=== PATIENT | male | born 1950 | race Caucasian/White ===

== ENCOUNTER 2016-10-25 08:06 | Emergency (ER) | payer MEDICARE ==
[~2016-10-25] VITALS: Ht 172.7 cm; Wt 81.8 kg
[~2016-10-25 08:06] MED LIST: /ESCI10TA; /QUET25TA; /TAMS4CA; AMBI10TA; DIOV80TA; SIMV20TA2; XANA0.25; ZOLO25TA
[2016-10-25] MEDS ORDERED: LISI40TAB PO (08:18)
[2016-10-25] MEDS ORDERED: METF500T13 PO (08:18)
[2016-10-25] MEDS ORDERED: HYDR25TAB PO (08:18)
[2016-10-25] MEDS ORDERED: ASPI81TA85 PO (08:18)
[2016-10-25] MEDS ORDERED: DOXA1TAB72 PO (08:18)
[2016-10-25] MEDS ORDERED: ROSU5TAB PO (08:18)
[2016-10-25] MEDS ORDERED: ASPIRIN 81 MG CHEW TABLET PO ONE (08:30)
[2016-10-25] MEDS ORDERED: NS 1,000 ML IV ONE (08:30)
[2016-10-25] MEDS ORDERED: NITROGLYCERIN 0.4 MG SUBL TABLET SL PRN (08:30)
[2016-10-25] MEDS ORDERED: ALBU17IN2 INH (08:42)
[2016-10-25] MEDS ORDERED: SPIR1CAP INH (08:42)
[2016-10-25] MEDS ORDERED: MORPHINE 2 MG/ML 1ML SYRINGE As Ordered ONE (08:48)
[2016-10-25 08:53] LABS: BASO % 0.7 % (0.0-1.0); EOS # 0.1 K/mm3 (0.0-0.50); EOS % 2.8 % (0.0-3.0); LARGE UNSTAINED CELL # 0.1 K/mm3 (0.0-0.4); LARGE UNSTAINED CELL % 2.6 % (0.0-4.0); LYMPH # 1.1 K/mm3 (1.5-4.5); LYMPH % 20.3 % (24.0-44.0); MEAN CORPUSCULAR HEMOGLOBIN 32.1 pg (27.0-33.0); MEAN CORPUSCULAR HGB CONC 34.6 g/dl (32.0-36.5); MEAN CORPUSCULAR VOLUME 92.6 fl (80.0-96.0); MONO # 0.4 K/mm3 (0.0-0.8); MONO % 7.6 % (0.0-5.0); NEUTROPHILS # 3.2 K/mm3 (1.8-7.7); NEUTROPHILS % 66.1 % (36.0-66.0); PLATELET COUNT, AUTOMATED 154 k/mm3 (150-450); RED CELL DISTRIBUTION WIDTH 12.9 % (11.5-14.5); WHITE BLOOD COUNT 4.9 K/mm3 (4.0-10.0)
[2016-10-25 08:59] LABS: ALBUMIN 3.7 GM/DL (3.2-5.2); ALBUMIN/GLOBULIN RATIO 0.97 (1.00-1.93); ALKALINE PHOSPHATASE 75 U/L (45-117); ALT/SGPT 57 U/L (12-78); ANION GAP 5 MEQ/L (8-16); AST/SGOT 26 U/L (15-37); BILIRUBIN,DIRECT < 0.1 MG/DL (0.0-0.2); BILIRUBIN,TOTAL 0.5 MG/DL (0.2-1.0); BLOOD UREA NITROGEN 17 MG/DL (7-18); CALCIUM LEVEL 9.1 MG/DL (8.8-10.2); CARBON DIOXIDE LEVEL 29 MEQ/L (21-32); CHLORIDE LEVEL 106 MEQ/L (98-107); CREATININE FOR GFR 1.38 MG/DL (0.70-1.30); FREE T4 1.05 NG/DL (0.76-1.46); GLOMERULAR FILTRATION RATE 54.9 (>49); GLUCOSE, FASTING 141 MG/DL (80-110); SODIUM LEVEL 140 MEQ/L (136-145); TOTAL PROTEIN 7.5 GM/DL (6.4-8.2)
[2016-10-25] MEDS ORDERED: MORPHINE 4 MG/ML 1ML SYRINGE IV ONE (09:00)
[2016-10-25] MEDS ORDERED: MORPHINE 2 MG/ML 1ML SYRINGE IV PRN (09:00)
[2016-10-25 09:01] LABS: INR 0.96
--- NOTE | 2016-10-25 09:10 | REP ---
PORTABLE CHEST: AP portable view of the chest is performed without prior studies for comparison. There is no acute infiltrate. There is mild linear fibroatelectatic change in each lung base. The heart is not enlarged. The mediastinal silhouette is unremarkable. IMPRESSION: No acute infiltrate. Signed by German Hoffmann MD 10/25/2016 05:12 P
[2016-10-25] MEDS ORDERED: ISOVUE-370 76% 100ML VIAL (Q9967) As Ordered ONE (09:48)
--- NOTE | 2016-10-25 11:22 | REP ---
CT ANGIOGRAM OF THE CHEST: TECHNIQUE: Axial contrast enhanced images from the thoracic inlet to the upper abdomen using 100 mL Isovue 370 intravenous contrast material with multiplanar reformations. There are scattered interstitial fibrotic changes diffusely bilaterally. No infiltrates are seen. The heart is normal in size. There is no CT evidence of pulmonary embolism. Normal mediastinal and hilar lymph nodes are present. There is no thoracic aortic aneurysm or dissection. There is no pleural or pericardial effusion. There are degenerative changes of the spine. IMPRESSION: No CT evidence of pulmonary embolism or other acute abnormality. Signed by German Hoffmann MD 10/25/2016 05:13 P
--- NOTE | 2016-10-25 11:36 | REP ---
CT ABDOMEN AND PELVIS WITH IV CONTRAST: TECHNIQUE: Axial contrast enhanced images from the lung bases to the pubic symphysis using 100 mL Isovue 370 intravenous contrast material with multiplanar reformations. Liver appears to demonstrate diffuse fatty infiltration. Gallbladder is grossly unremarkable. Spleen and adrenals are unremarkable. Pancreas is unremarkable with no surrounding inflammation. There are multiple innumerable right renal cysts with a cluster of calculi in the lower pole collecting system. There are a couple of left renal cysts. There is no hydroureteronephrosis bilaterally. Possible 4 mm calculus is seen in the distal right ureter at the ureterovesical junction. Urinary bladder is mildly distended. A portion of the left anterior inferior bladder extends into a small left inguinal hernia. There is also a small right inguinal hernia containing fat. There are atherosclerotic calcifications of the abdominal aorta without aneurysm. There is no adenopathy. There is no free air or free fluid. There is no evidence of appendicitis. There is no bowel wall thickening. There is sigmoid diverticulosis without acute diverticulitis. IMPRESSION: Bilateral inguinal hernias. A portion of the left side of the bladder extends into the left inguinal hernia. There is sigmoid diverticulosis without acute diverticulitis. No evidence of appendicitis. No free air or free fluid. Bilateral renal cysts much more so on the right than on the left. No hydroureteronephrosis. There appears to be a 4 mm calculus at the right ureterovesical junction but again this does not cause hydronephrosis. Signed by German Hoffmann MD 10/25/2016 05:13 P
[2016-10-25 12:58] VITALS: BP 148/80
--- NOTE | 2016-10-26 05:55 | ECGEPIP ---
Stationary ECG Study [facility] - ED Test Date: 2016-10-25 Pat Name: DAGMAR LANDRY Department: Room: - Gender: M Clinical Data Coordinator: gopal : 1950 Requested By: Everardo Pritchett Order Number: [id number] Reading MD: Man Blood Measurements Intervals [place] Rate: 89 P: 32 MO: 142 QRS: 83 QRSD: 162 T: 1 QT: 396 QTc: 483 Interpretive Statements SINUS RHYTHM INDETERMINATE AXIS RIGHT BUNDLE BRANCH BLOCK NO PRIORS Electronically Signed On 10-26-2016 5:54:47 EDT by Man Blood
--- NOTE | 2016-10-26 05:56 | ECGEPIP ---
Stationary ECG Study [facility] - ED Test Date: 2016-10-25 Pat Name: DAGMAR LANDRY Department: Room: - Gender: M Cobol Engineer: gopal : 1950 Requested By: Everardo Pritchett Order Number: [id number] Reading MD: Man Blood Measurements Intervals [place] Rate: 79 P: 26 NV: 146 QRS: 45 QRSD: 154 T: 5 QT: 398 QTc: 459 Interpretive Statements SINUS RHYTHM RIGHT BUNDLE BRANCH BLOCK SIMILAR TO PRIOR ON SAME DATE Electronically Signed On 10-26-2016 5:56:19 EDT by Man Blood
--- NOTE | 2016-10-26 13:32 | ED PDOC ---
Post-Departure Follow-Up dr bernardo faxed formal report of ct abd/p for fu Everardo Escobar MD Oct 26, 2016 13:32
== END 2016-10-25 13:12 | disposition home or self-care (01) ==
LOC: M ED 11:43
DX: N20.0 Calculus of kidney (principal); K40.21 Bilateral inguinal hernia, without obstruction or gangrene, recurrent; K57.30 Diverticulosis of large intestine without perforation or abscess without bleeding; N28.1 Cyst of kidney, acquired; R07.9 Chest pain, unspecified; I10 Essential (primary) hypertension; J44.9 Chronic obstructive pulmonary disease, unspecified; F17.200 Nicotine dependence, unspecified, uncomplicated; Z85.528 Personal history of other malignant neoplasm of kidney; Z90.5 Acquired absence of kidney; Z79.82 Long term (current) use of aspirin; Z79.899 Other long term (current) drug therapy
CPT/HCPCS: 36415; 71010; 71275; 74177; 80048; 80076; 82550; 82553; 83690; 84439; 84443; 84484; 85025; 85379; 85610; 85730; 93005; 93041; 94760; 96361; 96374; 99285; Q9967

== ENCOUNTER → 2018-09-11 | Outpatient (CLI) | payer MEDICARE ==
[~2018-09-11] MED LIST changes: -/ESCI10TA; -/QUET25TA; -/TAMS4CA; +ALBU17IN2 INH; +ASPI81TA85 PO; +DOXA1TAB67 PO; +FLOM0.4C39; +HYDR25TAB PO; +LEXA1TAB; +LISI40TA PO; +METF500T13 PO; +ROSU5TAB4 PO; +SERO1TAB3; +SPIR1CAP INH
[2018-09-11 12:54] LABS: CREATININE FOR GFR 1.3 MG/DL (0.70-1.30); GLOMERULAR FILTRATION RATE 58.4 (>49); PROSTATIC SPECIFIC AG MONITOR 6.3 NG/ML (< 4.00)
== END ==
LOC: M WUC 10:32
PROVIDERS: ATTEND Urology
DX: Z01.812 Encounter for preprocedural laboratory examination (principal); Z85.528 Personal history of other malignant neoplasm of kidney; R31.21 Asymptomatic microscopic hematuria; R97.20 Elevated prostate specific antigen [PSA]

== ENCOUNTER → 2019-02-12 | Outpatient (CLI) | payer MEDICARE ==
[~2019-02-12] MED LIST changes: -ROSU5TAB4 PO; +ROSU5TAB5 PO
[2019-02-12 20:27] LABS: CREATININE FOR GFR 1.32 MG/DL (0.70-1.30); GLOMERULAR FILTRATION RATE 57.4 (>49); PROSTATIC SPECIFIC AG MONITOR 6.09 NG/ML (< 4.00)
== END ==
LOC: M WUC 17:46
PROVIDERS: ATTEND Nurse Practitioner Adult Health
DX: N42.9 Disorder of prostate, unspecified (principal); R31.21 Asymptomatic microscopic hematuria

== ENCOUNTER → 2019-10-15 | Outpatient (CLI) | payer MEDICARE ==
[2019-10-15 16:21] LABS: BLOOD UREA NITROGEN 17 MG/DL (7-18); CALCIUM LEVEL 9.6 MG/DL (8.8-10.2); CARBON DIOXIDE LEVEL 29 MEQ/L (21-32); CHLORIDE LEVEL 104 MEQ/L (98-107); CREATININE FOR GFR 1.19 MG/DL (0.70-1.30); GLOMERULAR FILTRATION RATE > 60.0 (>49); GLUCOSE, FASTING 111 MG/DL (70-100); POTASSIUM SERUM 4.2 MEQ/L (3.5-5.1); SODIUM LEVEL 137 MEQ/L (136-145)
[2019-10-20 04:07] LABS: PSA % FREE 24.4 % (.); PSA FREE 1.27 ng/mL; PSA TOTAL 5.2 ng/mL (0.0-4.0)
== END ==
LOC: M WUC 12:33
PROVIDERS: ATTEND Urology
DX: Z01.812 Encounter for preprocedural laboratory examination (principal); N28.1 Cyst of kidney, acquired; R97.20 Elevated prostate specific antigen [PSA]

== ENCOUNTER → 2020-10-13 | Outpatient (CLI) | payer MEDICARE ==
[~2020-10-13] MED LIST changes: -ASPI81TA85 PO; +ASPI81TA86 PO; +HYDR-3490 PO; -HYDR25TAB PO; -LISI40TA PO; +LISI40TA4 PO
[2020-10-13 17:06] LABS: CALCIUM LEVEL 9.5 MG/DL (8.8-10.2); CREATININE FOR GFR 1.51 MG/DL (0.70-1.30); GLOMERULAR FILTRATION RATE 48.9 (>42); POTASSIUM SERUM 3.9 MEQ/L (3.5-5.1); PROSTATIC SPECIFIC AG MONITOR 6.96 NG/ML (< 4.00)
== END ==
LOC: M WUC 11:06
PROVIDERS: ATTEND Nurse Practitioner Adult Health
DX: R97.20 Elevated prostate specific antigen [PSA] (principal); Z85.528 Personal history of other malignant neoplasm of kidney

== ENCOUNTER 2021-02-10 16:04 | Emergency (ER) | payer MEDICARE ==
[~2021-02-10] VITALS: Ht 175.3 cm; Wt 81.8 kg
[2021-02-10] MEDS ORDERED: CHLO125TA PO (17:08)
[2021-02-10] MEDS ORDERED: GLIM2TAB4 PO (17:08)
[2021-02-10] MEDS ORDERED: ROSU10TA6 PO (17:08)
[2021-02-10 17:15] LABS: HEMATOCRIT 47.6 % (42.0-52.0); HEMOGLOBIN 16.2 g/dl (13.5-17.5); MEAN CORPUSCULAR HEMOGLOBIN 31.3 pg (27.0-33.0); MEAN CORPUSCULAR VOLUME 92.1 fl (80.0-96.0); PLATELET COUNT, AUTOMATED 216 10^3/uL (150-450); RED BLOOD COUNT 5.17 10^6/uL (4.30-6.10); WHITE BLOOD COUNT 11.4 10^3/uL (4.0-10.0)
[2021-02-10 17:53] LABS: ACETAMINOPHEN LEVEL < 2.0 UG/ML (10.0-30.0); ALBUMIN 3.7 GM/DL (3.2-5.2); ALT/SGPT 50 U/L (12-78); BILIRUBIN,DIRECT 0.1 MG/DL (0.0-0.2); BILIRUBIN,TOTAL 0.5 MG/DL (0.2-1.0); BLOOD UREA NITROGEN 29 MG/DL (7-18); CALCIUM LEVEL 9.5 MG/DL (8.8-10.2); CARBON DIOXIDE LEVEL 26 MEQ/L (21-32); CHLORIDE LEVEL 106 MEQ/L (98-107); CREATININE FOR GFR 1.56 MG/DL (0.70-1.30); ETHYL ALCOHOL (ETHANOL) < 0.003 % (0.000-0.010); GLOMERULAR FILTRATION RATE 47.1 (>42); GLUCOSE, FASTING 87 MG/DL (70-100); POTASSIUM SERUM 4.1 MEQ/L (3.5-5.1); SALICYLATE LEVEL 2.6 MG/DL (5.0-30.0); SODIUM LEVEL 139 MEQ/L (136-145); TOTAL PROTEIN 7.1 GM/DL (6.4-8.2)
[2021-02-10 18:55] LABS: AMPHETAMINES LEVEL URINE NEGATIVE (NEGATIVE); BARBITURATES URINE NEGATIVE (NEGATIVE); BENZODIAZEPINES URINE POSITIVE (NEGATIVE); CANNABINOIDS URINE NEGATIVE (NEGATIVE); COCAINE METABOLITE URINE NEGATIVE (NEGATIVE); METHADONE URINE NEGATIVE (NEGATIVE); OPIATES URINE NEGATIVE (NEGATIVE); PHENCYCLIDINE URINE NEGATIVE (NEGATIVE)
[2021-02-10] MEDS ORDERED: clonazePAM 0.5 MG TAB PO ONE (20:30)
[2021-02-10] MEDS ORDERED: CLON0.5T17 PO (21:17)
[2021-02-10 22:00] VITALS: BP 135/82
== END 2021-02-10 22:02 | disposition home or self-care (01) ==
LOC: M ED 16:04
DX: F32.9 Major depressive disorder, single episode, unspecified (principal); E11.9 Type 2 diabetes mellitus without complications; I10 Essential (primary) hypertension; F17.200 Nicotine dependence, unspecified, uncomplicated; Z79.82 Long term (current) use of aspirin; Z79.899 Other long term (current) drug therapy

== ENCOUNTER 2021-02-16 10:13 | Inpatient (IN) | payer MEDICARE ==
[~2021-02-16] VITALS: Ht 175.3 cm; Wt 82.1 kg
[~2021-02-16 10:13] MED LIST changes: +CHLO125TA PO; +CLON0.5T17 PO; +GLIM2TAB4 PO; +ROSU10TA6 PO
--- OUTSIDE RECORDS SUMMARY | 2021-02-16 10:26 | CCD | Continuity of Care Document ---
Author Author Junito BRENNAN Organization Unknown Address [address] [place] [address] [place] [address] Phone [phone] Care Team Providers Care Hand Mexican Food Maker Name Role Phone [facility] AUTM [phone] Problems Active Problems Provider Date Essential hypertension Onset: Hyperlipidemia Onset: Type 2 diabetes mellitus Onset: 00 Social History Type Date Description Comments Sex Unknown ETOH Use Denies alcohol use Tobacco Use Start: Unknown Patient is a current smoker, smo kes every day Smoking Status Reviewed: 01/05/21 Patient is a current smoker, smokes every day Allergies, Adverse Reactions, Alerts Description No Known Drug Allergies Medications Active Medications SIG Qnty Indications Ordering Provide r Date Clotrimazole 1% Cream apply to affected area on penis twice daily as directed for 14 days 30gm R21 Edgard Rendon JR., M.D. 01/05/2021 Lisinopril 40mg Tablets od 30tabs Unknown Chlorthalidone 25mg Tablets Unknown Rosuvastatin Calcium 10mg Tablets daily Unknown Glimepiride Unknown Aleve 220mg Tablets 2@6a Unknown Immunizations Description No Information Available Vital Signs Date Vital Result Comment 01/05/2021 11:18am BP Systolic 160 mmHg BP Diastolic 91 mmHg Heart Rate 89 /min Respiratory Rate 16 /min O2 % BldC Oximetry 97 % Body Temperature 98.4 F Weight 185.00 lb Height 69 inches 5'9" BMI (Body Mass Index) 27.3 kg/m2 Pain Level 2 10/27/2019 11:04am BP Systolic 146 mmHg BP Diastolic 82 mmHg Heart Rate 87 /min O2 % BldC Oximetry 94 % Body Temperature 97.9 F Weight 179.00 lb Height 69 inches 5'9" BMI (Body Mass Index) 26.4 kg/m2 Pain Level 0 Results Description No Information Available Procedures Date Code Description Status 01/05/2021 15863 Office/Outpatient Established Lo w MDM 20-29 Min Completed Medical Devices Description No Information Available Encounters Type Date Location Provider Dx Diagnosis Office Visit 01/05/2021 9:00a Main Office Skip Lockhart R2 1 Rash and other nonspecific skin eruption R30.0 Dysuria Assessments Date Code Description Provider 01/05/2021 R21 Rash and other nonspecific skin eruption Julio Brennan, PMaryannAMaryann 01/05/2021 R30.0 Dysuria Julio ivory, P.AMaryann Plan of Treatment No Information Available Functional Status Description No Information Available Mental Status Description No Information Available Referrals Description No Information Available
--- OUTSIDE RECORDS SUMMARY | 2021-02-16 10:26 | CCD | Continuity of Care Document ---
Author Author Junito BRENNAN Organization Unknown Address [address] [place] [address] [place] [address] Phone [phone] Care Team Providers Care Materials Management Supervisor Name Role Phone [facility] AUTM [phone] Problems Active Problems Provider Date Essential hypertension [...] Available Procedures Date Code Description Status 01/05/2021 40060 Office/Outpatient Established Lo w MDM 20-29 Min [...]
--- OUTSIDE RECORDS SUMMARY | 2021-02-16 10:26 | CCD | Continuity of Care Document ---
Author Author Junito DAUGHERTY CO Organization Unknown Address [address] [place] [address] [place] [address] Phone [phone] Care Team Providers Care Finishing Machine Operator Automatic Name Role Phone [facility] AUTM [phone] Problems Active Problems Provider Date Essential hypertension Onset: Hyperlipidemia Onset: Type 2 diabetes mellitus Onset: Social History Type Date Description Comments Sex Unknown ETOH Use Denies alcohol use Tobacco Use Start: Unknown Patient is a current smoker, smo kes every day Tobacco Use Start: Unknown The Patient Has Never Vaped Smoking Status Reviewed: 01/10/21 The Patient Has Never Vaped Allergies, Adverse Reactions, Alerts Description No Known Drug Allergies Medications Active Medications SIG Qnty Indications Ordering Provide r Date Mupirocin 2% Ointment aaa twice a day to the groin for 10 days 1units L30.9 Charissa Wadsworth JR. 01/10/2021 Hibiclens 4% Liquid wash into affected area twice a day x 10days 1units L30.9 Edgard Rendon JR., M.D. 01/10/2021 Amoxicillin/Clavulanate Potassium 875-125mg Tablets take one tablet by mouth twice a day x 10 days 20tabs L 30.9 Edgard Rendon JR., M.D. 01/10/2021 Clotrimazole 1% Cream apply to affected area on penis twice daily as directed for 14 days 30gm R21 Edgard Rendon JR., M.D. 01/05/2021 Lisinopril 40mg Tablets od 30tabs Unknown Chlorthalidone 25mg Tablets Unknown Rosuvastatin Calcium 10mg Tablets daily Unknown Glimepiride Unknown Aleve 220mg Tablets 2@6a Unknown Immunizations Description No Information Available Vital Signs Date Vital Result Comment 01/10/2021 4:41pm BP Systolic 160 mmHg BP Diastolic 96 mmHg Heart Rate 91 /min Respiratory Rate 16 /min O2 % BldC Oximetry 95 % Body Temperature 97.9 F Weight 185.00 lb Height 69 inches 5'9" BMI (Body Mass Index) 27.3 kg/m2 Pain Level 5 01/05/2021 11:18am BP Systolic 160 mmHg BP Diastolic 91 mmHg Heart Rate 89 /min Respiratory Rate 16 /min O2 % BldC Oximetry 97 % Body Temperature 98.4 F Weight 185.00 lb Height 69 inches 5'9" BMI (Body Mass Index) 27.3 kg/m2 Pain Level 2 Results Description No Information Available Procedures Date Code Description Status 01/10/2021 24147 Office/Outpatient Established Lo w MDM 20-29 Min Completed 01/05/2021 49473 Office/Outpatient Established Lo w MDM 20-29 Min Completed Medical Devices Description No Information Available Encounters Type Date Location Provider Dx Diagnosis Office Visit 01/10/2021 2:15p Main Office LADY Cotton L30 .9 Dermatitis, unspecified Office Visit 01/05/2021 9:00a Main Office Julio Bowden, P.A. R2 1 Rash and other nonspecific skin eruption R30.0 Dysuria Assessments Date Code Description Provider 01/10/2021 L30.9 Dermatitis, unspecified LADY Cotton 01/05/2021 R21 Rash and other nonspecific skin eruption Julio Bowden, P.A. 01/05/2021 R30.0 Dysuria Julio ivory, P.A. Plan of Treatment 01/10/2021 - LADY Cotton* L30.9 Dermatitis, unspecified* New Medication:* Mupirocin 2 % - aaa twice a day to the groin for 10 days * Hibiclens 4 % - wash into affected area twice a day x 10days * Amoxicillin/Clavulanate Potassium 875-125 mg - take one tablet by mouth twice a day x 10 days Functional Status Description No Information Available Mental Status Description No Information Available Referrals Description No Information Available
--- OUTSIDE RECORDS SUMMARY | 2021-02-16 10:26 | CCD ---
Author Author [facility] Organization [facility] Address Unknown Phone Unavailable Care Team Providers Care Chartered Wealth Manager Name Role Phone WILLOW, Natalie WHITE PA Unavailable Unavailable LETTIERE, A CHRISTOPHER PA Unavailable Unavailable LETTIERE, A CHRISTOPHER PA Unavailable Unavailable LETTIERE, A CHRISTOPHER PA Unavailable Unavailable LETTIERE, A CHRISTOPHER PA Unavailable Unavailable LETTIERE, A CHRISTOPHER PA Unavailable Unavailable LETTIERE, A CHRISTOPHER PA Unavailable Unavailable LETTIERE, A CHRISTOPHER PA Unavailable Unavailable LETTIERE, A CHRISTOPHER PA Unavailable Unavailable LETTIERE, A CHRISTOPHER PA Unavailable Unavailable LETTIERE, A CHRISTOPHER PA Unavailable Unavailable LETTIERE, A CHRISTOPHER PA Unavailable Unavailable LETTIERE, A CHRISTOPHER PA Unavailable Unavailable LETTIERE, A CHRISTOPHER PA Unavailable Unavailable LETTIERE, A CHRISTOPHER PA Unavailable Unavailable LETTIERE, A CHRISTOPHER PA Unavailable Unavailable LETTIERE, A CHRISTOPHER PA Unavailable Unavailable LETTIERE, A CHRISTOPHER PA Unavailable Unavailable LETTIERE, A CHRISTOPHER PA Unavailable Unavailable LETTIERE, A CHRISTOPHER PA Unavailable Unavailable LETTIERE, A CHRISTOPHER PA Unavailable Unavailable LETTIERE, A CHRISTOPHER PA Unavailable Unavailable LETTIERE, A CHRISTOPHER PA Unavailable Unavailable LETTIERE, A CHRISTOPHER PA Unavailable Unavailable LETTIERE, A CHRISTOPHER PA Unavailable Unavailable LETTIERE, A CHRISTOPHER PA Unavailable Unavailable LETTIERE, A CHRISTOPHER PA Unavailable Unavailable LETTIERE, A CHRISTOPHER PA Unavailable Unavailable LETTIERE, A CHRISTOPHER PA Unavailable Unavailable LETTIERE, A CHRISTOPHER PA Unavailable Unavailable LETTIERE, A CHRISTOPHER PA Unavailable Unavailable PICKERAL JR, J RAN PA-C Unavailable Unavailable PICKERAL JR, J RAN PA-C Unavailable Unavailable PICKERAL JR, J RAN PA-C Unavailable Unavailable PICKERAL JR, J RAN PA-C Unavailable Unavailable PICKERAL JR, J RAN PA-C Unavailable Unavailable PICKERAL JR, J RAN PA-C Unavailable Unavailable PICKERAL JR, J RAN PA-C Unavailable Unavailable PICKERAL JR, J RAN PA-C Unavailable Unavailable PICKERAL JR, J RAN PA-C Unavailable Unavailable PICKERAL JR, J RAN PA-C Unavailable Unavailable PICKERAL JR, J RAN PA-C Unavailable Unavailable PICKERAL JR, J RAN PA-C Unavailable Unavailable PICKERAL JR, J RAN PA-C Unavailable Unavailable PICKERAL JR, J RAN PA-C Unavailable Unavailable PICKERAL JR, J RAN PA-C Unavailable Unavailable PICKERAL JR, J RAN PA-C Unavailable Unavailable PICKERAL JR, J RAN PA-C Unavailable Unavailable PICKERAL JR, J RAN PA-C Unavailable Unavailable PICKERAL JR, J RAN PA-C Unavailable Unavailable PICKERAL JR, J RAN PA-C Unavailable Unavailable PICKERAL JR, J RAN PA-C Unavailable Unavailable PICKERAL JR, J RAN PA-C Unavailable Unavailable PICKERAL JR, J RAN PA-C Unavailable Unavailable PICKERAL JR, J RAN PA-C Unavailable Unavailable PICKERAL JR, J RAN PA-C Unavailable Unavailable PICKERAL JR, J RAN PA-C Unavailable Unavailable PICKERAL JR, J RAN PA-C Unavailable Unavailable ANU, GRETCHEN PA Unavailable Unavailable ANU, GRETCHEN PA Unavailable Unavailable ANU, GRETCHEN PA Unavailable Unavailable ANU, GRETCHEN PA Unavailable Unavailable ANU, GRETCHEN PA Unavailable Unavailable ANU, GRETCHEN PA Unavailable Unavailable ANU, GRETCHEN PA Unavailable Unavailable ANU, GRETCHEN PA Unavailable Unavailable ANU, GRETCHEN PA Unavailable Unavailable ANU, GRETCHEN PA Unavailable Unavailable ANU, GRETCHEN PA Unavailable Unavailable ANU, GRETCHEN PA Unavailable Unavailable ANU, GRETCHEN PA Unavailable Unavailable ANU, GRETCHEN PA Unavailable Unavailable ANU, GRETCHEN PA Unavailable Unavailable ANU, GRETCHEN PA Unavailable Unavailable ANU, GRETCHEN PA Unavailable Unavailable ANU, GRETCHEN PA Unavailable Unavailable ANU, GRETCHEN PA Unavailable Unavailable ANU, GRETCHEN PA Unavailable Unavailable ANU, GRETCHEN PA Unavailable Unavailable ANU, GRETCHEN PA Unavailable Unavailable ANU, GRETCHEN PA Unavailable Unavailable ANU, GRETCHEN PA Unavailable Unavailable ANU, GRETCHEN PA Unavailable Unavailable ANU, GRETCHEN PA Unavailable Unavailable ANU, GRETCHEN PA Unavailable Unavailable ANU, GRETCHEN PA Unavailable Unavailable ANU, GRETCHEN PA Unavailable Unavailable ANU, GRETCHEN PA Unavailable Unavailable ANU, GRETCHEN PA Unavailable Unavailable ANU, GRETCHEN PA Unavailable Unavailable ANU, GRETCHEN PA Unavailable Unavailable ANU, GRETCHEN PA Unavailable Unavailable ANU, GRETCHEN PA Unavailable Unavailable ANU, GRETCHEN PA Unavailable Unavailable TELMA, Natalie MERCEDES MD Unavailable Unavailable TELMA, Natalie MERCEDES MD Unavailable Unavailable TELMA, Natalie MERCEDES MD Unavailable Unavailable TELMA, Natalie MERCEDES MD Unavailable Unavailable TELMA, Natalie MERCEDES MD Unavailable Unavailable TELMA, Natalie MERCEDES MD Unavailable Unavailable TELMA, Natalie MERCEDES MD Unavailable Unavailable TELMA, Natalie MERCEDES MD Unavailable Unavailable TELMA, Natalie MERCEDES MD Unavailable Unavailable TELMA, Natalie MERCEDES MD Unavailable Unavailable TELMA, Natalie MERCEDES MD Unavailable Unavailable TELMA, Natalie MERCEDES MD Unavailable Unavailable TELMA, Natalie MERCEDES MD Unavailable Unavailable TELMA, Natalie MERCEDES MD Unavailable Unavailable TELMA, Natalie MERCEDES MD Unavailable Unavailable TELMA, Natalie MERCEDES MD Unavailable Unavailable TELMA, Natalie MERCEDES MD Unavailable Unavailable TELMA, Natalie MERCEDES MD Unavailable Unavailable TELMA, Natalie MERCEDES MD Unavailable Unavailable TELMA, Natalie MERCEDES MD Unavailable Unavailable TELMA, Natalie MERCEDES MD Unavailable Unavailable TELMA, Natalie MERCEDES MD Unavailable Unavailable TELMA, Natalie MERCEDES MD Unavailable Unavailable TELMA, Natalie MERCEDES MD Unavailable Unavailable TELMA, Natalie MERCEDES MD Unavailable Unavailable TELMA, Natalie MERCEDES MD Unavailable Unavailable TELMA, Natalie MERCEDES MD Unavailable Unavailable TELMA, Natalie MERCEDES MD Unavailable Unavailable TELMA, Natalie MERCEDES MD Unavailable Unavailable TELMA, Natalie MERCEDES MD Unavailable Unavailable TELMA, Natalie MERCEDES MD Unavailable Unavailable TELMA, Natalie MERCEDES MD Unavailable Unavailable TELMA, Natalie MERCEDES MD Unavailable Unavailable TELMA, Natalie MERCEDES MD Unavailable Unavailable TELMA, Natalie MERCEDES MD Unavailable Unavailable TELMA, Natalie MERCEDES MD Unavailable Unavailable TELMA, Natalei MERCEDES MD Unavailable Unavailable TELMA, Natalie MERCEDES MD Unavailable Unavailable TELMA, Natalie MERCEDES MD Unavailable Unavailable TELMA, A MAGO MD Unavailable Unavailable TELMA, A MAGO MD Unavailable Unavailable TELMA, A MAGO MD Unavailable Unavailable TELMA, A MAGO MD Unavailable Unavailable TELMA, A MAGO MD Unavailable Unavailable TELMA, A MAGO MD Unavailable Unavailable TELMA, A MAGO MD Unavailable Unavailable TELMA, A MAGO MD Unavailable Unavailable TELMA, A MAGO MD Unavailable Unavailable TELMA, A MAGO MD Unavailable Unavailable TELMA, A MAGO MD Unavailable Unavailable TELMA, A MAGO MD Unavailable Unavailable TELMA, A MAGO MD Unavailable Unavailable TELMA, A MAGO MD Unavailable Unavailable TELMA, A MAGO MD Unavailable Unavailable TELMA, A MAGO MD Unavailable Unavailable TELMA, A MAGO MD Unavailable Unavailable TELMA, A MAGO MD Unavailable Unavailable TELMA, A MAGO MD Unavailable Unavailable TELMA, A MAGO MD Unavailable Unavailable TELMA, A MAGO MD Unavailable Unavailable TELMA, A MAGO MD Unavailable Unavailable TELMA, A MAGO MD Unavailable Unavailable TELMA, A MAGO MD Unavailable Unavailable TELMA, A MAGO MD Unavailable Unavailable TELMA, A MAGO MD Unavailable Unavailable TELMA, A MAGO MD Unavailable Unavailable TELMA, A MAGO MD Unavailable Unavailable TELMA, A MAGO MD Unavailable Unavailable TELMA, A MAGO MD Unavailable Unavailable TELMA, A MAGO MD Unavailable Unavailable TELMA, A MAGO MD Unavailable Unavailable TELMA, A MAGO MD Unavailable Unavailable TELMA, A MAGO MD Unavailable Unavailable TELMA, A MAGO MD Unavailable Unavailable TELMA, A MAGO MD Unavailable Unavailable TELMA, A MAGO MD Unavailable Unavailable TELMA, A MAGO MD Unavailable Unavailable TELMA, A MAGO MD Unavailable Unavailable TELMA, A MAGO MD Unavailable Unavailable TELMA, A MAGO MD Unavailable Unavailable TELMA, A MAGO MD Unavailable Unavailable TELMA, A MAGO MD Unavailable Unavailable TELMA, A MAGO MD Unavailable Unavailable Re-disclosure Warning The records that you are about to access may contain information from federally-assisted alcohol or drug abuse programs. If such information is present, then the following federally mandated warning applies: This information has been disclosed to you from records protected by federal confidentiality rules (42 CFR part 2). The federal rules prohibit you from making any further disclosure of this information unless further disclosure is expressly permitted by the written consent of the person to whom it pertains or as otherwise permitted by 42 CFR part 2. A general authorization for the release of medical or other information is NOT sufficient for this purpose. The Federal rules restrict any use of the information to criminally investigate or prosecute any alcohol or drug abuse patient.The records that you are about to access may contain highly sensitive health information, the redisclosure of which is protected by Article 27-F of the [facility] Public Health law. If you continue you may have access to information: Regarding HIV / AIDS; Provided by facilities licensed or operated by the [facility] Office of Mental Health; or Provided by the [facility] Office for People With Developmental Disabilities. If such information is present, then the following [facility] mandated warning applies: This information has been disclosed to you from confidential records which are protected by state law. State law prohibits you from making any further disclosure of this information without the specific written consent of the person to whom it pertains, or as otherwise permitted by law. Any unauthorized further disclosure in violation of state law may result in a fine or penitentiary sentence or both. A general authorization for the release of medical or other information is NOT sufficient authorization for further disc losure. Family History Family Member Name Family Member Gender Family Member Status Date o f Status Description Data Source(s) Unknown Male Problem [facility] ([facility] Unknown Unknown Problem [facility] ([facility]) Unknown Female Problem [facility] ([facility] [place]) Encounters Encounter Providers Location Date Indications Data Source(s ) Outpatient Attender: RAN Saravia Prima ry 01/27/2021 08:10:00 AM EDT [facility] ([facility] Outpatient Attender: CHRISTOPHER Saravia Prim sandra 01/10/2021 02:15:00 PM EDT [facility] ([facility] Outpatient Attender: GRETCHEN Pendletona ry 01/05/2021 09:00:00 AM EDT [facility] ([facility], [facility]) Outpatient Attender: MAGO Garcia/ [facility]ds[facility]aryann[facility] 10/26/2020 03:15:00 PM EDT [facility] [place] Medications Medication Brand Name Start Date Product Form Dose Route Admi nistrative Instructions Pharmacy Instructions Status Indications Reaction Description Data Source(s) Amoxicillin 875 MG / Clavulanate 125 MG Oral Tablet Am oxicillin/Clavulanate Potassium 01/27/2021 12:00:00 AM EDT ORAL active MED[facility] ([facility]) Mupirocin 0.02 MG/MG Topical Ointment Mupirocin 01/10/2021 12:00:00 AM EDT active MED[facility] ([facility]) chlorhexidine gluconate 40 MG/ML Medicated Liquid Soap [Hibi clens] Hibiclens 01/10/2021 12:00:00 AM EDT active [facility] ([facility]) Amoxicillin 875 MG / Clavulanate 125 MG Oral Tablet Am oxicillin/Clavulanate Potassium 01/10/2021 12:00:00 AM EDT ORAL completed [facility] ([facility]) Clotrimazole 10 MG/ML Topical Cream Clotrimazole 01/05/2021 12:00:00 AM EDT completed [facility] ([facility]) sildenafil 100 MG Oral Tablet Sildenafil Citrate 10/26/2020 12:00:00 AM EDT ORAL active [facility] ([facility] [place] Insurance Providers Payer name Policy type / Coverage type Policy ID Covered constitution party ID Covered constitution party's relationship to chao Policy Chao Plan Information [facility] [id number] [facility] Medigap Part B [id number] [id number] .[id number] Self [id number] [facility] [place] Medigap Part B [id number] .[id number] Self [id number] [facility] [place] Medigap Part B [id number] [id number] .[id number] Self [id number] [facility] Medigap Part B [id number] Self [facility] Medigap Part B [id number] 2..[id number] .[id number] Self [id number] [employer] [place] Med[place] [id number] 2..[id number] .[id number] Self [id number] [employer] [place] Med[place] Part [place] [id number] Self [id number] [employer] [place] Med[place] Part B [id number] .[id number] .[id number] Self [id number] [employer] [place] Med[place] [place] [id number] [id number] .[id number] Self [id number] [employer] [place] Med[place] [id number] 2..1.740168.3.227.99 .[id number] Self [id number] [employer] [place] Med[place] [id number] .[id number] .[id number] Self [id number] [employer] [place] Med[place] [place] [id number] Self [id number] [employer] [place] Medigap Part B [id number] Self [employer] [place] Medigap Part B [id number] .1.587680.3.227.99 .[id number] Self [id number] Medicare Medicare Primary [id number] .1.503243.3.227. [id number] Self [id number] [employer] Supplemental Plan Medigap Part B [id number]733.0 Self [id number] Medicare Medicare Primary [id number] 2.840.1.786659.3.227. 99.802.050324.0 Self [id number] [employer] Supplemental Plan Medigap Part B [id number] 2.0.1.375[id number] Self [id number] Medicare Medicare Primary [id number] 2.840.1.807873.3.227. [id number] Self [id number] [employer] Supplemental Plan Medigap Part B [id number] 2.0.1.888[id number] Self [id number] [employer] Supplemental Plan Medigap Part B [id number] [facility] Medicare Medicare Primary [id number] [facility] Medicare Medicare Primary [id number] 2.0.1.298729.3.227. [id number] Self [id number] [employer] Supplemental Plan Medigap Part B [id number] Self [id number] [employer] Supplemental Plan Medigap Part B [id number] Self [id number] Medicare Medicare Primary [id number] 2.0.1.953181.3.227. [id number] Self [id number] Medicare Medicare Primary [id number] Self [id number] [employer] Supplemental Plan Medigap Part B [id number] 2.0.1.754324.3.227.99.802.834408.0 Self [id number] MEDICARE MCA [id number] [employer]ARP HE[employer] CARE OPTIONS [id number] SP [id number] [employer] [place] Medigap Part B [id number] Self [id number] [employer] [place] Medigap Part B [id number] 2..1.385588.3.227.99 .802.143349.0 Self [id number] [employer] [place] Medigap Part B [id number] 2.0.1.607669.3.227.99 .802.332477.0 Self [id number] [employer] [place] Medigap Part B [id number] 2..1.946014.3.227.99 .802.099469.0 Self [id number] [facility] [employer] Options Medigap Part B [id number] 2..1.221163.3.227.99.1767.22799.0 Self [id number] Medicare Natl Gov't Servi Medicare Primary [id number] 2..1.456318.3.227.99.1767.26036.0 Self [id number] [employer] [place] Medigap Part B [id number] 2..1.282895.3.227.99 .802.753592.0 Self [id number] [employer] [facility] Options Medigap Part B [id number] 2..1.083021.3.227.99.572.58679.0 Self [id number] Medicare (Part B) Medicare Primary [id number] 2..[id number] Self 1 [id number] MEDICARE [id number] SP [id number] [employer] Options Medigap Part B [id number] 2..[id number] Self [id number] Medicare (Part B) Medicare Primary [id number] Self 1 [id number] [employer] [place] Medigap Part B [id number] [id number] .[id number] Self [id number] [employer] [place] Medigap Part B [id number] Self [employer] Options Medigap Part B [id number] Self Medicare Natl Gov't Servi Medicare Primary [id number] Self MEDICARE MCA [id number] AARP HEA [id number] SE [id number] MEDICARE [id number] SP [id number] Problems, Conditions, and Diagnoses No Information Surgeries/Procedures Procedure Description Date Indications Data Source(s) OFFICE OUTPATIENT VISIT 15 MINUTES 01/27/2021 12:00:00 AM EDT [facility] ([facility], [facility]) OFFICE OUTPATIENT VISIT 15 MINUTES 01/10/2021 12:00:00 AM EDT [facility] ([facility], [facility]) OFFICE OUTPATIENT VISIT 15 MINUTES 01/05/2021 12:00:00 AM EDT [facility] ([facility], [facility]) Results ID Date Data Source [id number] 10/26/2020 01:57:00 PM EDT [facility] ([facility] [place] Name Value Range Interpretation Code Description Data Skylar rce(s) Supporting Document(s) Protein [Presence] in Urine by Test strip 30 mg/dL [facility] ([facility]) Glucose [Presence] in Urine Laboratory test result [facility] ([facility] [place]) Ua Nitrite Laboratory test result ME DENT ([facility]) Ua Leuko Laboratory test result ME [facility] ([facility] [place]) Color of Urine Laboratory test result [facility] ([facility]) Blood [Presence] in Urine by Visual Laboratory test result [facility] ([facility] [place]) Clarity of Urine Laboratory test result [facility] ([facility] [place]) Ua Specific [place] 1.010 1.003-1.030 MEDE NT ([facility] [place]) Ketones [Presence] in Urine by Test strip Laboratory test result [facility] ([facility]) pH of Urine by Test strip 6.5 5.0-7.5 [facility] ([facility] [place]) Bilirubin.total [Presence] in Urine by Test strip Laboratory test res ult [facility] ([facility] [place]) Urobilinogen [Mass/volume] in Urine by Test strip 0.2 E.U./dL 0.0-1.0 [facility] ([facility]) ID Date Data Source [id number] 10/13/2020 11:06:00 AM EDT [facility] ([facility]) Name Value Range Interpretation Code Description Data Skylar rce(s) Supporting Document(s) Glucose, Fasting 175 mg/dL 70-100 [facility] ( [facility] [place]) Blood Urea Nitrogen 21 mg/dL 7-18 MEDEN T ([facility] [place]) Creatinine For GFR 1.51 mg/dL 0.70-1.30 [facility] ([facility]) Glomerular Filtration Rate 48.9 [facility] ([facility]) <content>Units are mL/min/1.73 m2</content>
<content></content>
<content>Chronic Kidney Disease Staging per NKF:</content>
<content></content>
<content>Stage I & II GFR >=60 Normal to Mildly Decreased</content>
<content>Stage III GFR 30- 59 Moderately Decreased</content>
<content>Stage IV GFR 15-29 Severely Decreased</content>
<content>Stage V GFR <15 Very Little GFR Left</content>
<content>ESRD GFR <15 on OLIVE GRADER</content>
<content></content> Potassium Serum 3.9 meq/L 3.5-5.1 [facility] ([facility] [place] Sodium Level 142 meq/L 136-145 [facility] ([facility]) Chloride Level 107 meq/L 98-107 [facility] ([facility] [place]) Anion Gap 6 meq/L 8-16 [facility] ([facility]) Carbon Dioxide Level 29 meq/L 21-32 MEDE NT ([facility]) Calcium Level 9.5 mg/dL 8.8-10.2 [facility] ([facility]) ID Date Data Source [id number] 10/13/2020 11:06:00 AM EDT [facility] ([facility]) Name Value Range Interpretation Code Description Data Skylar rce(s) Supporting Document(s) Prostate specific Ag [Mass/volume] in Serum or Plasma 6.96 ng/mL [facility] ([facility]) The PSA assay is performed on the C-sam analyzer by [employer] sandwich chemiluminescent immunoassay and should not be compared interchangeably with other methods. It should not be used alone as a screening test or diagnosis for the presence or absence of malignant disease. Predictions of disease recurrence should not be based solely on values obtained from serial patient serum values. Procedure Social History Code Duration Value Status Description Data Source(s ) Smoking 10/26/2020 12:00:00 AM EDT Former Cigarette Smoker com pleted Former Cigarette Smoker [facility] ([facility]) Vital Signs ID Date Data Source UNK Name Value Range Interpretation Code Description Data Source(s) Body mass index (BMI) [Ratio] 27.3 kg/m2 27.3 k g/m2 [facility] Systolic blood pressure 138 mm[Hg] 138 mm[Hg] M EDENT ([facility], [facility]) Diastolic blood pressure 94 mm[Hg] 94 mm[Hg] [facility] ([facility], [facility]) Heart rate 95 /min 95 /min [facility] ([facility], [facility]) Respiratory rate 16 /min 16 /min [facility] ( [facility]) Oxygen saturation in Arterial blood by Pulse oximetry 96 % 96 % [facility], [facility]) Body temperature 97.5 [degF] 97.5 [degF] [facility] ([facility], [facility]) Body weight 185.00 [lb_av] 185.00 [lb_av] MEDEN T ([facility], [facility]) Body height 69 [in_i] 69 [in_i] [facility] 5'9" Systolic blood pressure 160 mm[Hg] 160 mm[Hg] M EDENT ([facility], [facility]) Diastolic blood pressure 96 mm[Hg] 96 mm[Hg] [facility] ([facility], [facility]) Heart rate 91 /min 91 /min [facility] ([facility], [facility]) Respiratory rate 16 /min 16 /min [facility] ( [facility], [facility]) Oxygen saturation in Arterial blood by Pulse oximetry 95 % 95 % [facility] ([facility], [facility]) Body temperature 97.9 [degF] 97.9 [degF] [facility] ([facility], [facility]) Body weight 185.00 [lb_av] 185.00 [lb_av] MEDEN T ([facility], [facility]) Body height 69 [in_i] 69 [in_i] [facility] ([facility], [facility]) 5'9" Body mass index (BMI) [Ratio] 27.3 kg/m2 27.3 k g/m2 [facility], [facility]) Body height 69 [in_i] 69 [in_i] [facility] ([facility], [facility]) 5'9" Body mass index (BMI) [Ratio] 27.3 kg/m2 27.3 k g/m2 [facility] ([facility], [facility]) Body weight 185.00 [lb_av] 185.00 [lb_av] [facility] T ([facility], [facility]) Systolic blood pressure 160 mm[Hg] 160 mm[Hg] M EDENT ([facility], [facility]) Diastolic blood pressure 91 mm[Hg] 91 mm[Hg] [facility] ([facility], [facility]) Heart rate 89 /min 89 /min [facility] ([facility], [facility]) Respiratory rate 16 /min 16 /min MEDENT ( [facility], [facility]) Oxygen saturation in Arterial blood by Pulse oximetry 97 % 97 % [facility], [facility]) Body temperature 98.4 [degF] 98.4 [degF] MEDENT ([facility], [facility]) Body height 69 [in_i] 69 [in_i] MED[facility] ([facility] 5'9" Body weight 185.00 [lb_av] 185.00 [lb_av] ASHLIE T ([facility]) Body weight 83.916 kg 83.916 kg OLLIE ([facility]) Body mass index (BMI) [Ratio] 27.3 kg/m2 27.3 k g/m2 OLLIE ([facility]) Systolic blood pressure 158 mm[Hg] 158 mm[Hg] M EDENT ([facility]) Diastolic blood pressure 100 mm[Hg] 100 mm[Hg] MEDRADAMES ([facility]) Heart rate 98 /min 98 /min [facility] ([facility] Body temperature 97.6 [degF] 97.6 [degF] [facility] ([facility])
--- OUTSIDE RECORDS SUMMARY | 2021-02-16 10:26 | CCD | Continuity of Care Document ---
Author Author Junito DAUGHERTY [place] Organization Unknown Address [address] [place] [address] [place] [address] Phone [phone] Care Team Providers Care Validation Technician Name Role Phone [facility] AUTM [phone] Problems Active Problems Provider Date Essential hypertension [...] Available Procedures Date Code Description Status 01/10/2021 40447 Office/Outpatient Established Lo w MDM 20-29 Min Completed 01/05/2021 97585 Office/Outpatient Established Lo w MDM 20-29 Min [...]
--- OUTSIDE RECORDS SUMMARY | 2021-02-16 10:26 | CCD | Continuity of Care Document ---
Author Junito Mckee [place] Organization Unknown Address [address] [place] [address] [place] [address] Phone [phone] Care Team Providers Care Truck Hopper Name Role Phone [facility] AUTM [phone] Problems Active Problems Provider Date Essential hypertension [...] SIG Qnty Indications Ordering Provide r Date Amoxicillin/Clavulanate Potassium 875-125mg Tablets take one tablet by mouth twice a day x 10 days 20tabs L 30.9 Edgard Rendon JR., M.D. 01/27/2021 Mupirocin 2% Ointment aaa twice a day to the groin for 10 days 1units L30.9 Charissa Wadsworth JR. 01/10/2021 Hibiclens 4% Liquid wash into affected area twice a day x 10days 1units L30.9 Edgard Rendon JR., M.D. 01/10/2021 Lisinopril 40mg Tablets od 30tabs Unknown Chlorthalidone 25mg Tablets Unknown Rosuvastatin Calcium 10mg Tablets daily Unknown Glimepiride Unknown History Medications Amoxicillin/Clavulanate Potassium 875-125mg Tablets take one tablet by mouth twice a day x 10 days 20tabs L 30.9 Edgard Rendon JR., M.D. 01/10/2021 - 01/27/2021 Clotrimazole 1% Cream apply to affected area on penis twice daily as directed for 14 days 30gm R21 Edgard Rendon JR., M.D. 01/05/2021 - 01/26/2021 Immunizations Description No Information Available Vital Signs Date Vital Result Comment 01/27/2021 8:24am BP Systolic 138 mmHg BP Diastolic 94 mmHg Heart Rate 95 /min Respiratory Rate 16 /min O2 % BldC Oximetry 96 % Body Temperature 97.5 F Weight 185.00 lb Height 69 inches 5'9" BMI (Body Mass Index) 27.3 kg/m2 Pain Level 0 01/10/2021 4:41pm BP Systolic 160 mmHg BP Diastolic 96 mmHg Heart Rate 91 /min Respiratory Rate 16 /min O2 % BldC Oximetry 95 % Body Temperature 97.9 F Weight 185.00 lb Height 69 inches 5'9" BMI (Body Mass Index) 27.3 kg/m2 Pain Level 5 Results Description No Information Available Procedures Date Code Description Status 01/27/2021 55665 Office/Outpatient Established Lo w MDM 20-29 Min Completed 01/10/2021 01555 Office/Outpatient Established Lo w MDM 20-29 Min Completed 01/05/2021 69595 Office/Outpatient Established Lo w MDM 20-29 Min Completed Medical Devices Description No Information Available Encounters Type Date Location Provider Dx Diagnosis Office Visit 01/27/2021 8:10a Main Office LADY Vora JR L 30.9 Dermatitis, unspecified Office Visit 01/10/2021 2:15p Main Office LADY Cotton L30 .9 Dermatitis, unspecified Office Visit 01/05/2021 9:00a Main Office Julio Bowden, PMaryannAMaryann R2 1 Rash and other nonspecific skin eruption R30.0 Dysuria Assessments Date Code Description Provider 01/27/2021 L30.9 Dermatitis, unspecified LAYD Vora JR 01/10/2021 L30.9 Dermatitis, unspecified LADY Cotton 01/05/2021 R21 Rash and other nonspecific skin eruption Julio Bowden, Skip 01/05/2021 R30.0 Dysuria Julio ivory, P.A. Plan of Treatment 01/27/2021 - LADY Vora JR* L30.9 Dermatitis, unspecified* New Medication:* Amoxicillin/Clavulanate Potassium 875-125 mg - take one tablet by mouth twice a day x 10 days * Comments:* Continue and extend medications as written by LADY VenturareFollow up with urology if no improvement this time Pt v/u and agreement with plan as above Functional Status Description No Information Available Mental Status Description No Information Available Referrals Description No Information Available
--- OUTSIDE RECORDS SUMMARY | 2021-02-16 10:26 | CCD | Continuity of Care Document ---
Author Junito Mckee [place] Organization Unknown Address [address] [place] [address] [place] [address] Phone [phone] Care Team Providers Care Library Page Name Role Phone [facility] AUTM [phone] Problems Active Problems Provider Date Essential hypertension [...] Available Procedures Date Code Description Status 01/27/2021 58854 Office/Outpatient Established Lo w MDM 20-29 Min Completed 01/10/2021 27207 Office/Outpatient Established Lo w MDM 20-29 Min Completed 01/05/2021 55543 Office/Outpatient Established Lo w MDM 20-29 Min [...] Code Description Provider 01/27/2021 L30.9 Dermatitis, unspecified LADY Vora JR 01/10/2021 L30.9 Dermatitis, unspecified LADY [...]
[2021-02-16 11:36] LABS: HEMATOCRIT 48.1 % (42.0-52.0); HEMOGLOBIN 16.5 g/dl (13.5-17.5); MEAN CORPUSCULAR HEMOGLOBIN 31.8 pg (27.0-33.0); MEAN CORPUSCULAR HGB CONC 34.3 g/dl (32.0-36.5); MEAN CORPUSCULAR VOLUME 92.7 fl (80.0-96.0); PLATELET COUNT, AUTOMATED 215 10^3/uL (150-450); RED BLOOD COUNT 5.19 10^6/uL (4.30-6.10); WHITE BLOOD COUNT 8.9 10^3/uL (4.0-10.0)
--- OUTSIDE RECORDS SUMMARY | 2021-02-16 11:43 | CCD ---
Author Author [facility] Organization [facility] Address Unknown Phone Unavailable Care Team Providers Care Library Services Dean Name Role Phone WILLOW, Natalie WHITE PA [...] Unavailable TELMA, A MAGO MD Unavailable Unavailable TELAM, A MAGO MD Unavailable Unavailable TELMA, A [...] is protected by Article 27-F of the [facility] Public Health law. If you continue you may have access to information: Regarding HIV / AIDS; Provided by facilities licensed or operated by the [facility] Office of Mental Health; or Provided by the [facility] Office for People With Developmental Disabilities. If such information is present, then the following [facility] mandated warning applies: This information has been [...] law may result in a fine or nursing home sentence or both. A general authorization for the release of medical or other information is NOT sufficient authorization for further disc losure. Family History Family Member Name Family Member Gender Family Member Status Date o f Status Description Data Source(s) Unknown Male Problem [facility] ([facility]) Unknown Unknown Problem [facility] ([facility], [facility]) Unknown Female Problem [facility] ([facility] [place]) Encounters Encounter Providers Location Date Indications Data Source(s ) Outpatient Attender: RAN Saravia Prima ry 01/27/2021 08:10:00 AM EDT [facility] ([facility]) Outpatient Attender: CHRISTOPHER Saravia Prim sandra 01/10/2021 02:15:00 PM EDT MED[facility] ([facility], [facility]) Outpatient Attender: GRETCHEN Pendletona ry 01/05/2021 09:00:00 AM EDT MED[facility] ([facility], [facility]) Outpatient Attender: MAGO Garcia/ LyndsayMMaryannPMaryann Urology 10/26/2020 03:15:00 PM EDT [facility] [place] Medications Medication Brand Name Start Date Product Form Dose Route Admi nistrative Instructions Pharmacy Instructions Status Indications Reaction Description Data Source(s) Amoxicillin 875 MG / Clavulanate 125 MG Oral Tablet Am oxicillin/Clavulanate Potassium 01/27/2021 12:00:00 AM EDT ORAL active MEDENT ([facility]) Mupirocin 0.02 MG/MG Topical Ointment Mupirocin 01/10/2021 12:00:00 AM EDT active MEDENT ([facility]) chlorhexidine gluconate 40 MG/ML Medicated Liquid Soap [Hibi clens] Hibiclens 01/10/2021 12:00:00 AM EDT active MEDENT ([facility]) Amoxicillin 875 MG / Clavulanate 125 MG Oral Tablet Am oxicillin/Clavulanate Potassium 01/10/2021 12:00:00 AM EDT ORAL completed MEDENT ([facility]) Clotrimazole 10 MG/ML Topical Cream Clotrimazole 01/05/2021 12:00:00 AM EDT completed MEDENT ([facility]) sildenafil 100 MG Oral Tablet Sildenafil Citrate 10/26/2020 12:00:00 AM EDT ORAL active MEDENT ([facility] [place]) Insurance Providers Payer name Policy type / Coverage type Policy ID Covered libertarian ID Covered libertarian's relationship to chao Policy Chao Plan Information [facility] BLUE [id number] [facility] Medigap Part B [id number] [id number] .[id number] Self [id number] [facility] [place] Medigap Part B [id number] [id number] .[id number] Self [id number] [facility] [place] Medigap Part B [id number] [id number] .[id number] Self [id number] [facility] Medigap Part B [id number] Self [facility] Medigap Part B [id number] 2..[id number] .802.287985.0 Self [id number] [employer] [place] Medigap Part B [id number] 2..1.560378.3.227.99 .802.189964.0 Self [id number] [employer] [place] Medigap Part B [id number] Self [id number] [employer] [place] Medigap Part B [id number] .[id number] .[id number] Self [id number] [employer] [place] Medigap Part B [id number] 2.1.547468.3.227.99 .[id number] Self [id number] [employer] [place] Medigap Part B [id number] 2..1.637508.3.227.99 .[id number] Self [id number] [employer] [place] Medigap Part B [id number] .[id number] .802.306217.0 Self [id number] [employer] [place] Medigap Part B [id number] Self [id number] [employer] [place] Medigap Part B [id number] Self [employer] [place] Medigap Part B [id number] .[id number] .[id number] Self [id number] Medicare Medicare Primary [id number] .1.135843.3.227. 99.802.253723.0 Self [id number] [employer] Supplemental Plan Medigap Part B [id number]8049.0 Self [id number] Medicare Medicare Primary [id number] 2.840.1.177539.3.227. 99.802.514932.0 Self [id number] [employer] Supplemental Plan Medigap Part B [id number] 2.0.1.962800.3.227.99.802.713533.0 Self [id number] Medicare Medicare Primary [id number] 2.840.1.584455.3.227. 99.802.284101.0 Self [id number] [employer] Supplemental Plan Medigap Part B [id number] 2.0.1.449747.3.227.99.802.479399.0 Self [id number] A[employer] Supplemental Plan Medigap Part B [id number] [facility] Medicare Medicare Primary [id number] [facility] Medicare Medicare Primary [id number] 2.0.1.775578.3.227. [id number] Self [id number] [employer] Supplemental Plan Medigap Part B [id number] Self [id number] A[employer] Supplemental Plan Medigap Part B [id number] Self [id number] Medicare Medicare Primary [id number] 2.0.1.254982.3.227. 99.802.948411.0 Self [id number] Medicare Medicare Primary [id number] Self [id number] [employer] Supplemental Plan Medigap Part B [id number] [id number] Self [id number] MEDICARE MCA [id number] [employer]ARP HE[employer] CARE OPTIONS [id number] SP [id number] BCBS [place] Medigap Part B [id number] Self [id number] BCBS [place] Medigap Part B [id number] 2..1.028049.3.227.99 .802.588542.0 Self [id number] BCBS [place] Medigap Part B [id number] 2.0.1.257595.3.227.99 .802.582481.0 Self [id number] BCBS [place] Medigap Part B [id number] 2..1.778893.3.227.99 .802.753110.0 Self [id number] [facility] [employer] Options Medigap Part B [id number] 2..1.823[id number] Self [id number] Medicare Natl Gov't Servi Medicare Primary [id number] 2..1.796704.3.227.99.1767.91636.0 Self [id number] BCBS [place] Medigap Part B [id number] 2..1.650519.3.227.99 .802.480699.0 Self [id number] [employer] [facility] Options Medigap Part B [id number] 2..1.297875.3.227.99.572.28748.0 Self [id number] Medicare (Part B) Medicare Primary [id number] 2..1.715551.3.227.99.572.31557.0 Self 1 [id number] MEDICARE [id number] SP [id number] [employer] Options Medigap Part B [id number] 2..1.495304.3.227.99.572.30181.0 Self [id number] Medicare (Part B) Medicare Primary [id number] [id number]8.0 Self 1 [id number] BCBS [place] Medigap Part B [id number] 2.16.840.1.534025.3.227.99 .802.692586.0 Self [id number] BCBS [place] Medigap Part B [id number] Self [employer] Care Options Medigap Part B [id number] Self Medicare Natl Gov't Servi Medicare Primary [id number] Self MEDICARE MCA [id number] AARP HEA [id number] SE [id number] MEDICARE [id number] SP [id number] Problems, Conditions, and Diagnoses No Information Surgeries/Procedures Procedure Description Date Indications Data Source(s) OFFICE OUTPATIENT VISIT 15 MINUTES 01/27/2021 12:00:00 AM EDT MEDENT ([facility], [facility]) OFFICE OUTPATIENT VISIT 15 MINUTES 01/10/2021 12:00:00 AM EDT MEDENT ([facility], [facility]) OFFICE OUTPATIENT VISIT 15 MINUTES 01/05/2021 12:00:00 AM EDT MEDENT ([facility], [facility]) Results ID Date Data Source [id number] 10/26/2020 01:57:00 PM EDT [facility] ([facility] [place]) Name Value Range Interpretation Code Description Data Skylar rce(s) Supporting Document(s) Protein [Presence] in Urine by Test strip 30 mg/dL [facility] ([facility] [place]) Glucose [Presence] in Urine Laboratory test result [facility] ([facility] [place]) Ua Nitrite Laboratory test result ME DENT ([facility] [place]) Ua Leuko Laboratory test result ME DENT ([facility] [place]) Color of Urine Laboratory test result [facility] ([facility] [place]) Blood [Presence] in Urine by Visual Laboratory test result [facility] ([facility] [place]) Clarity of Urine Laboratory test result [facility] ([facility] [place]) Ua Specific [place] 1.010 1.003-1.030 MEDE NT ([facility] [place]) Ketones [Presence] in Urine by Test strip Laboratory test result MEDENT ([facility]) pH of Urine by Test strip 6.5 5.0-7.5 [facility] ([facility] [place]) Bilirubin.total [Presence] in Urine by Test strip Laboratory test res ult MEDENT ([facility] [place]) Urobilinogen [Mass/volume] in Urine by Test strip 0.2 E.U./dL 0.0-1.0 MED[facility] ([facility]) ID Date Data Source [id number] 10/13/2020 11:06:00 AM EDT MEDENT ([facility]) Name Value Range Interpretation Code Description Data Skylar rce(s) Supporting Document(s) Glucose, Fasting 175 mg/dL 70-100 [facility] ( [facility] [place]) Blood Urea Nitrogen 21 mg/dL 7-18 MEDEN T ([facility] [place]) Creatinine For GFR 1.51 mg/dL 0.70-1.30 [facility] ([facility]) Glomerular Filtration Rate 48.9 [facility] ([facility]) <content>Units are mL/min/1.73 m2</content>
<content></content>
<content>Chronic Kidney Disease Staging per NKF:</content>
<content></content>
<content>Stage I & II GFR >=60 Normal to Mildly Decreased</content>
<content>Stage III GFR 30- 59 Moderately Decreased</content>
<content>Stage IV GFR 15-29 Severely Decreased</content>
<content>Stage V GFR <15 Very Little GFR Left</content>
<content>ESRD GFR <15 on [employer]</content>
<content></content> Potassium Serum 3.9 meq/L 3.5-5.1 [facility] ([facility] [place]) Sodium Level 142 meq/L 136-145 [facility] ([facility]) Chloride Level 107 meq/L 98-107 [facility] ([facility] [place]) Anion Gap 6 meq/L 8-16 [facility] ([facility]) Carbon Dioxide Level 29 meq/L 21-32 MEDE NT ([facility]) Calcium Level 9.5 mg/dL 8.8-10.2 [facility] ([facility]) ID Date Data Source [id number] 10/13/2020 11:06:00 AM EDT MEDENT ([facility]) Name Value Range Interpretation Code Description Data Skylar rce(s) Supporting Document(s) Prostate specific Ag [Mass/volume] in Serum or Plasma 6.96 ng/mL MEDENT ([facility]) The PSA assay is performed on the BoxC analyzer by LOC[employer] sandwich chemiluminescent immunoassay and [...] com pleted Former Cigarette Smoker MEDENT ([facility]) Vital Signs ID Date Data Source UNK Name Value Range Interpretation Code Description Data Source(s) Body mass index (BMI) [Ratio] 27.3 kg/m2 27.3 k g/m2 [facility], [facility]) Systolic blood pressure 138 mm[Hg] 138 mm[Hg] M EDENT ([facility], [facility]) Diastolic blood pressure 94 mm[Hg] 94 mm[Hg] MEDENT ([facility], [facility]) Heart rate 95 /min 95 /min MEDENT ([facility], [facility]) Respiratory rate 16 /min 16 /min [facility] ( [facility]) Oxygen saturation in Arterial blood by Pulse oximetry 96 % 96 % [facility] ([facility], [facility]) Body temperature 97.5 [degF] 97.5 [degF] [facility] ([facility], [facility]) Body weight 185.00 [lb_av] 185.00 [lb_av] MEDEN T ([facility], [facility]) Body height 69 [in_i] 69 [in_i] [facility] 5'9" Systolic blood pressure 160 mm[Hg] 160 mm[Hg] M EDENT ([facility], [facility]) Diastolic blood pressure 96 mm[Hg] 96 mm[Hg] MEDENT ([facility], [facility]) Heart rate 91 /min 91 /min MEDENT ([facility], [facility]) Respiratory rate 16 /min 16 /min MEDENT ( [facility], [facility]) Oxygen saturation in Arterial blood by Pulse oximetry 95 % 95 % MEDENT ([facility], [facility]) Body temperature 97.9 [degF] 97.9 [degF] MEDENT ([facility], [facility]) Body weight 185.00 [lb_av] 185.00 [lb_av] MEDEN T ([facility], [facility]) Body height 69 [in_i] 69 [in_i] MEDENT ([facility], [facility]) 5'9" Body mass index (BMI) [Ratio] 27.3 kg/m2 27.3 k g/m2 [facility] ([facility], [facility]) Body height 69 [in_i] 69 [in_i] MEDENT ([facility], [facility]) 5'9" Body mass index (BMI) [Ratio] 27.3 kg/m2 27.3 k g/m2 [facility] ([facility], [facility]) Systolic blood pressure 160 mm[Hg] 160 mm[Hg] M EDENT ([facility], [facility]) Diastolic blood pressure 91 mm[Hg] 91 mm[Hg] MEDENT ([facility], [facility]) Heart rate 89 /min 89 /min MED[facility] ([facility], [facility]) Respiratory rate 16 /min 16 /min [facility] ( [facility], [facility]) Oxygen saturation in Arterial blood by Pulse oximetry 97 % 97 % MEDENT ([facility], [facility]) Body temperature 98.4 [degF] 98.4 [degF] MEDENT ([facility], [facility]) Body weight 185.00 [lb_av] 185.00 [lb_av] MEDEN T ([facility], [facility]) Body temperature 97.6 [degF] 97.6 [degF] [facility] ([facility] [place]) Body height 69 [in_i] 69 [in_i] OLLIE ([facility] [place]) 5'9" Body weight 185.00 [lb_av] 185.00 [lb_av] ROBERTEN T ([facility] [place]) Body weight 83.916 kg 83.916 kg OLLIE ([facility] [place]) Body mass index (BMI) [Ratio] 27.3 kg/m2 27.3 k g/m2 OLLIE ([facility] [place]) Systolic blood pressure 158 mm[Hg] 158 mm[Hg] M EDENT ([facility] [place]) Diastolic blood pressure 100 mm[Hg] 100 mm[Hg] OLLIE ([facility] [place]) Heart rate 98 /min 98 /min OLLIE ([facility] [place])
[2021-02-16 12:06] LABS: ERYTHROCYTE SEDIMENTATION RATE 7 mm/hr (0-20)
[2021-02-16 12:14] LABS: AMPHETAMINES LEVEL URINE NEGATIVE (NEGATIVE); BARBITURATES URINE NEGATIVE (NEGATIVE); BENZODIAZEPINES URINE NEGATIVE (NEGATIVE); CANNABINOIDS URINE NEGATIVE (NEGATIVE); COCAINE METABOLITE URINE NEGATIVE (NEGATIVE); METHADONE URINE NEGATIVE (NEGATIVE); OPIATES URINE NEGATIVE (NEGATIVE); PHENCYCLIDINE URINE NEGATIVE (NEGATIVE)
[2021-02-16 12:15] LABS: ACETAMINOPHEN LEVEL < 2.0 UG/ML (10.0-30.0); ALBUMIN 3.6 GM/DL (3.2-5.2); ALT/SGPT 65 U/L (12-78); BILIRUBIN,DIRECT 0.2 MG/DL (0.0-0.2); BILIRUBIN,TOTAL 0.7 MG/DL (0.2-1.0); BLOOD UREA NITROGEN 26 MG/DL (7-18); CALCIUM LEVEL 9.3 MG/DL (8.8-10.2); CARBON DIOXIDE LEVEL 28 MEQ/L (21-32); CHLORIDE LEVEL 104 MEQ/L (98-107); CREATININE FOR GFR 1.66 MG/DL (0.70-1.30); ETHYL ALCOHOL (ETHANOL) 0.003 % (0.000-0.010); GLOMERULAR FILTRATION RATE 43.8 (>42); GLUCOSE, FASTING 106 MG/DL (70-100); SALICYLATE LEVEL 2.7 MG/DL (5.0-30.0); SODIUM LEVEL 138 MEQ/L (136-145); TOTAL PROTEIN 7.2 GM/DL (6.4-8.2)
[2021-02-16 12:17] LABS: VITAMIN B12 LEVEL 416 PG/ML (247-911)
[2021-02-16 13:47] LABS: RSV AMPLIFICATION NEGATIVE (NEGATIVE)
--- NOTE | 2021-02-16 14:47 | MHIPNPDOC ---
[facility] Progress Note Progress Note DATE OF SERVICE: 02/16/21 Patient presented by PSA, patient has worsening depression and suicidal ideation, is tearful and labile has been trying to take his sertraline with limited benefit and has concern for worsening depression development of suicidal ideation, patient willing to be admitted voluntarily. Patient meets criteria for voluntary admission. Vital Signs Vital Signs Date Time Temp Pulse Resp B/P (MAP) Pulse Ox O2 Delivery O2 Flow Rate FiO2 02/16/21 10:14 97.3 101 18 129/82 (98) 98 Room Air Laboratory Data 24H Labs Laboratory Tests 2 02/16/21 11:16: Nucleated Red Blood Cells % (auto) 0.0, Erythrocyte Sedimentation Rate 7, Anion Gap 6L, Glomerular Filtration Rate 43.8, Calcium Level 9.3, Total Bilirubin 0.7, Direct Bilirubin 0.2, Aspartate Amino Transf (AST/SGOT) 32, Alanine Aminotransferase (ALT/SGPT) 65, Alkaline Phosphatase 126H, C-Reactive Protein, Quantitative 0.30, Total Protein 7.2, Albumin 3.6, Albumin/Globulin Ratio 1.0, Vitamin B12 Level 416, Thyroid Stimulating Hormone (TSH) 1.870, Salicylates Level 2.7L, Urine Opiates Screen NEGATIVE, Urine Methadone Screen NEGATIVE, Acetaminophen Level < 2.0L, Urine Barbiturates Screen NEGATIVE, Urine Phencyclidine Screen NEGATIVE, Urine Amphetamines Screen NEGATIVE, Urine Benzodiazepines Screen NEGATIVE, Urine Cocaine Metabolite Screen NEGATIVE, Urine Cannabinoids Screen NEGATIVE, Ethyl Alcohol Level 0.003, Syphilis Serology NONREACTIVE 02/16/21 13:01: Coronavirus (COVID-19)(PCR) NEGATIVE, Influenza Type A (RT-PCR) NEGATIVE, Influenza Type B (RT-PCR) NEGATIVE, Respiratory Syncytial Virus (PCR) NEGATIVE CBC/BMP Laboratory Tests 02/16/21 11:16 Allergies Coded Allergies: No Known Allergies (Verified , 06/30/08) SAMANTHA MACKEY MD Feb 16, 2021 14:47
[2021-02-16] MEDS ORDERED: traZODone 50 MG TAB PO PRN (15:15)
[2021-02-16] MEDS ORDERED: MAALOX 30 ML SUSP *UDC PO PRN (15:15)
[2021-02-16] MEDS ORDERED: MOM 30ML SUSPENSION UDC PO PRN (15:15)
--- OUTSIDE RECORDS SUMMARY | 2021-02-16 15:45 | CCD ---
Author Author [facility] Organization [facility] Address Unknown Phone Unavailable Care Team Providers Care [employer] Project Manager Name Role Phone WILLOW, Natalie WHITE [...] Unavailable ANU, GRETCHEN PA Unavailable Unavailable ANU, GRECTHEN PA Unavailable Unavailable ANU, GRETCHEN PA Unavailable [...] TELMA, Natalie MERCEDES MD Unavailable Unavailable TELMA, Natlaie MERCEDES MD Unavailable Unavailable TELMA, Natalie MERCEDES [...] is protected by Article 27-F of the [facility] Public Health law. If you continue you may have access to information: Regarding HIV / AIDS; Provided by facilities licensed or operated by the [facility] Office of Mental Health; or Provided by the [facility] Office for People With Developmental Disabilities. If such information is present, then the following [facility] mandated warning applies: This information [...] law may result in a fine or longterm sentence or both. A general authorization for the release of medical or other information is NOT sufficient authorization for further disc losure. Family History Family Member Name Family Member Gender Family Member Status Date o f Status Description Data Source(s) Unknown Male Problem [facility] ([facility]) Unknown Unknown Problem [facility] ([facility]) Unknown Female Problem [facility] ([facility] [place]) Encounters Encounter Providers Location Date Indications Data Source(s ) Outpatient Attender: RAN Saravia Prima ry 01/27/2021 08:10:00 AM EDT [facility] Outpatient Attender: CHRISTOPHER Saravia Prim sandra 01/10/2021 02:15:00 PM EDT [facility] ([facility] Outpatient Attender: GRETCHEN Pendletona ry 01/05/2021 09:00:00 AM EDT [facility] ([facility], [facility]) Outpatient Attender: MAGO Garcia/ LyndsayMMaryannPM[facility] 10/26/2020 03:15:00 PM EDT [facility] [place] Medications Medication Brand Name Start Date Product Form Dose Route Admi nistrative Instructions Pharmacy Instructions Status Indications Reaction Description Data Source(s) Amoxicillin 875 MG / Clavulanate 125 MG Oral Tablet Am oxicillin/Clavulanate Potassium 01/27/2021 12:00:00 AM EDT ORAL active MEDENT ([facility]) Mupirocin 0.02 MG/MG Topical Ointment Mupirocin 01/10/2021 12:00:00 AM EDT active [facility] ([facility]) chlorhexidine gluconate 40 MG/ML Medicated Liquid Soap [Hibi clens] Hibiclens 01/10/2021 12:00:00 AM EDT active MEDENT ([facility]) Amoxicillin 875 MG / Clavulanate 125 MG Oral Tablet Am oxicillin/Clavulanate Potassium 01/10/2021 12:00:00 AM EDT ORAL completed MED[facility] ([facility]) Clotrimazole 10 MG/ML Topical Cream Clotrimazole 01/05/2021 12:00:00 AM EDT completed [facility] ([facility]) sildenafil 100 MG Oral Tablet Sildenafil Citrate 10/26/2020 12:00:00 AM EDT ORAL active [facility] ([facility] [place]) Insurance Providers Payer name Policy type / Coverage type Policy ID Covered republican ID Covered republican's relationship to chao Policy Chao Plan Information [facility] [id number] [facility] Medigap Part B [id number] 2..[id number] .[id number] Self [id number] [facility] Medigap Part B [id number] [id number] .[id number] Self [id number] [facility] Medigap Part B [id number] 2.0.1.810116.3.227.99 .802.746316.0 Self [id number] [facility] Medigap Part B [id number] Self [facility] Medigap Part B [id number] 2..1.799875.3.227.99 .802.470872.0 Self [id number] [employer] [place] Medigap Part B [id number] 2..1.648159.3.227.99 .802.596619.0 Self [id number] [employer] [place] Medigap Part B [id number] Self [id number] [employer] [place] Medigap Part B [id number] .1.078959.3.227.99 .802.519325.0 Self [id number] [employer] [place] Medigap Part B [id number] 2.1.247229.3.227.99 .802.509508.0 Self [id number] [employer] [place] Medigap Part B [id number] 2..1.987756.3.227.99 .802.274235.0 Self [id number] [employer] [place] Medigap Part B [id number] .1.365925.3.227.99 .802.420123.0 Self [id number] [employer] [place] Medigap Part B [id number] Self [id number] [employer] [place] Medigap Part B [id number] Self [employer] [place] Medigap Part B [id number] .1.938215.3.227.99 .802.260263.0 Self [id number] Medicare Medicare Primary [id number] .1.508962.3.227. 99.802.272619.0 Self [id number] [employer] Supplemental Plan Medigap Part B [id number]9.802.721881.0 Self [id number] Medicare Medicare Primary [id number] 2.840.1.994828.3.227. 99.802.373256.0 Self [id number] [employer] Supplemental Plan Medigap Part B [id number] 2.0.1.648781.3.227.99.802.244594.0 Self [id number] Medicare Medicare Primary [id number] 2.840.1.653380.3.227. 99.802.302200.0 Self [id number] [employer] Supplemental Plan Medigap Part B [id number] 2.0.1.853484.3.227.99.802.429023.0 Self [id number] [employer] Supplemental Plan Medigap Part B [id number] [facility] Medicare Medicare Primary [id number] [facility] Medicare Medicare Primary [id number] 2.0.1.194288.3.227. 99.802.559789.0 Self [id number] [employer] Supplemental Plan Medigap Part B [id number] Self [id number] [employer] Supplemental Plan Medigap Part B [id number] 20.1.166752.3.227.99.802.763434.0 Self [id number] Medicare Medicare Primary [id number] 2.0.1.985542.3.227. 99.802.497619.0 Self [id number] Medicare Medicare Primary [id number] Self [id number] [employer] Supplemental Plan Medigap Part B [id number] 2.0.1.905776.3.227.99.802.172534.0 Self [id number] MEDICARE MCA [id number] [employer] C[employer] OPTIONS [id number] SP [id number] BCBS CNY Medigap Part B [id number] Self [id number] [employer] CNY Medigap Part B [id number] 2..1.156529.3.227.99 .802.046476.0 Self [id number] [employer] CN[place] Medigap Part B [id number] 2.0.1.766334.3.227.99 .802.933338.0 Self [id number] [employer] CN[place] Medigap Part B [id number] 2..1.496525.3.227.99 .802.581654.0 Self [id number] [facility] Options Medigap Part B [id number] 2..1.028027.3.227.99.1767.88156.0 Self [id number] Medicare Natl Gov't Servi Medicare Primary [id number] 2..1.242035.3.227.99.1767.04143.0 Self [id number] [employer] CN[place] Medigap Part B [id number] 2..1.392084.3.227.99 .802.157701.0 Self [id number] [facility] Options Medigap Part B [id number] 2..1.932279.3.227.99.572.01943.0 Self [id number] Medicare (Part B) Medicare Primary [id number] 2..1.016038.3.227.99.572.91729.0 Self 1 [id number] MEDICARE [id number] SP [id number] [employer] [facility] Options Medigap Part B [id number] 2..1.071301.3.227.99.572.31207.0 Self [id number] Medicare (Part B) Medicare Primary [id number] 2.16.840.1.497974.3.227.99.572.75259.0 Self 1 [id number] BCBS CNY Medigap Part B [id number] 2.16.840.1.953836.3.227.99 .802.317681.0 Self [id number] [employer] CN[place] Medigap Part B [id number] Self [employer] [facility] Options Medigap Part B [id number] Self Medicare Natl Gov't Servi Medicare Primary [id number] Self MEDICARE MCA [id number] AARP HEA [id number] SE [id number] MEDICARE [id number] SP [id number] Problems, Conditions, and Diagnoses No Information Surgeries/Procedures Procedure Description Date Indications Data Source(s) OFFICE OUTPATIENT VISIT 15 MINUTES 01/27/2021 12:00:00 AM EDT [facility] ([facility], [facility]) OFFICE OUTPATIENT VISIT 15 MINUTES 01/10/2021 12:00:00 AM EDT [facility] ([facility], [facility]) OFFICE OUTPATIENT VISIT 15 MINUTES 01/05/2021 12:00:00 AM EDT [facility] ([facility], [facility]) Results ID Date Data Source [id number] 10/26/2020 01:57:00 PM EDT [facility] ([facility] [place]) Name Value Range Interpretation Code Description Data Skylar rce(s) Supporting Document(s) Protein [Presence] in Urine by Test strip 30 mg/dL [facility] ([facility] [place]) Glucose [Presence] in Urine Laboratory test result [facility] ([facility] [place]) Ua Nitrite Laboratory test result ME DENT ([facility] [place]) Ua Leuko Laboratory test result ME DENT ([facility] [place]) Color of Urine Laboratory test result [facility] ([facility] [place]) Blood [Presence] in Urine by Visual Laboratory test result [facility] ([facility] [place]) Clarity of Urine Laboratory test result [facility] ([facility] [place]) Ua Specific [place] 1.010 1.003-1.030 MEDE NT ([facility] [place]) Ketones [Presence] in Urine by Test strip Laboratory test result [facility] ([facility]) pH of Urine by Test strip 6.5 5.0-7.5 [facility] ([facility] [place]) Bilirubin.total [Presence] in Urine by Test strip Laboratory test res ult [facility] ([facility] [place]) Urobilinogen [Mass/volume] in Urine by Test strip 0.2 E.U./dL 0.0-1.0 [facility] ([facility]) ID Date Data Source [id number] 10/13/2020 11:06:00 AM EDT [facility] ([facility]) Name Value Range Interpretation Code Description Data Skylar rce(s) Supporting Document(s) Glucose, Fasting 175 mg/dL 70-100 [facility] ( [facility] [place]) Blood Urea Nitrogen 21 mg/dL 7-18 MEDEN T ([facility] [place]) Creatinine For GFR 1.51 mg/dL 0.70-1.30 [facility] ([facility]) Glomerular Filtration Rate 48.9 [facility] ([facility]) <content>Units are mL/min/1.73 m2</content>
<content></content>
<content>Chronic Kidney Disease Staging per NKF:</content>
<content></content>
<content>Stage I & II GFR >=60 Normal to Mildly Decreased</content>
<content>Stage III GFR 30- 59 Moderately Decreased</content>
<content>Stage IV GFR 15-29 Severely Decreased</content>
<content>Stage V GFR <15 Very Little GFR Left</content>
<content>ESRD GFR <15 on PRINT PRODUCER</content>
<content></content> Potassium Serum 3.9 meq/L 3.5-5.1 [facility] ([facility] [place]) Sodium Level 142 meq/L 136-145 [facility] ([facility]) Chloride Level 107 meq/L 98-107 [facility] ([facility] [place]) Anion Gap 6 meq/L 8-16 [facility] ([facility]) Carbon Dioxide Level 29 meq/L 21-32 MEDE NT ([facility]) Calcium Level 9.5 mg/dL 8.8-10.2 [facility] ([facility]) ID Date Data Source [id number] 10/13/2020 11:06:00 AM EDT [facility] ([facility]) Name Value Range Interpretation Code Description Data Skylar rce(s) Supporting Document(s) Prostate specific Ag [Mass/volume] in Serum or Plasma 6.96 ng/mL [facility] ([facility]) The PSA assay is performed on the Nanali analyzer by LOCI sandwich chemiluminescent immunoassay and [...] com pleted Former Cigarette Smoker [facility] ([facility]) Vital Signs ID Date Data Source UNK Name Value Range Interpretation Code Description Data Source(s) Body mass index (BMI) [Ratio] 27.3 kg/m2 27.3 k g/m2 [facility] ([facility], [facility]) Systolic blood pressure 138 mm[Hg] 138 mm[Hg] M EDENT ([facility], [facility]) Diastolic blood pressure 94 mm[Hg] 94 mm[Hg] [facility] ([facility], [facility]) Heart rate 95 /min 95 /min [facility] ([facility], [facility]) Respiratory rate 16 /min 16 /min [facility] ( [facility]) Oxygen saturation in Arterial blood by Pulse oximetry 96 % 96 % [facility] ([facility], [facility]) Body temperature 97.5 [degF] 97.5 [degF] [facility] ([facility], [facility]) Body weight 185.00 [lb_av] 185.00 [lb_av] MEDEN T ([facility], [facility]) Body height 69 [in_i] 69 [in_i] [facility] ([facility]) 5'9" Systolic blood pressure 160 mm[Hg] 160 mm[Hg] M EDENT ([facility], [facility]) Heart rate 91 /min 91 /min [facility] Respiratory rate 16 /min 16 /min [facility] ( [facility], [facility]) Oxygen saturation in Arterial blood by Pulse oximetry 95 % 95 % [facility] ([facility], [facility]) Body temperature 97.9 [degF] 97.9 [degF] [facility] ([facility], [facility]) Body weight 185.00 [lb_av] 185.00 [lb_av] MEDEN T ([facility], [facility]) Body height 69 [in_i] 69 [in_i] [facility] ([facility], [facility]) 5'9" Body mass index (BMI) [Ratio] 27.3 kg/m2 27.3 k g/m2 [facility] ([facility], [facility]) Diastolic blood pressure 96 mm[Hg] 96 mm[Hg] [facility] ([facility], [facility]) Body height 69 [in_i] 69 [in_i] [facility] ([facility], [facility]) 5'9" Body mass index (BMI) [Ratio] 27.3 kg/m2 27.3 k g/m2 [facility] ([facility], [facility]) Systolic blood pressure 160 mm[Hg] 160 mm[Hg] M EDENT ([facility], [facility]) Diastolic blood pressure 91 mm[Hg] 91 mm[Hg] [facility] ([facility], [facility]) Heart rate 89 /min 89 /min [facility] ([facility]) Respiratory rate 16 /min 16 /min [facility] ( [facility], [facility]) Oxygen saturation in Arterial blood by Pulse oximetry 97 % 97 % [facility] ([facility], [facility]) Body temperature 98.4 [degF] 98.4 [degF] [facility] ([facility], [facility]) Body weight 185.00 [lb_av] 185.00 [lb_av] MEDEN T ([facility], [facility]) Body temperature 97.6 [degF] 97.6 [degF] [facility] ([facility] [place]) Body height 69 [in_i] 69 [in_i] OLLIE ([facility] [place] 5'9" Body weight 185.00 [lb_av] 185.00 [lb_av] ROBERTEN T ([facility] [place]) Body weight 83.916 kg 83.916 kg OLLIE ([facility] [place]) Body mass index (BMI) [Ratio] 27.3 kg/m2 27.3 k g/m2 OLLIE ([facility] [place]) Systolic blood pressure 158 mm[Hg] 158 mm[Hg] M EDENT ([facility] [place]) Diastolic blood pressure 100 mm[Hg] 100 mm[Hg] OLLIE ([facility] [place]) Heart rate 98 /min 98 /min OLLIE ([facility] [place])
[2021-02-16] MEDS ORDERED: SILD100T (16:11)
[2021-02-16] MEDS ORDERED: SERT-141 PO (16:11)
[2021-02-16] MEDS ORDERED: HYDR-3363 PO (16:11)
[2021-02-16] MEDS ORDERED: HOME MED LIST COMPLETE! XX SCH (16:15)
[2021-02-16 17:11] VITALS: BP 147/83
[2021-02-16] MEDS: hydrOXYzine 25 MG TAB PO SCH ×2 (18:21→20:42)
[2021-02-17] MEDS: hydrOXYzine 25 MG TAB PO SCH ×3 (01:16→08:15)
[2021-02-17 07:14] VITALS: BP_SYST 136; BP_SYST 146; BP_DIAS 76
[2021-02-17] MEDS: CHLORTHALIDONE 25 MG TAB PO SCH (08:15)
[2021-02-17] MEDS: GLIMEPIRIDE 2 MG TAB PO SCH (08:15)
[2021-02-17] MEDS: lisinopriL 40 MG TAB PO SCH (08:15)
[2021-02-17] MEDS: ROSUVASTATIN 10 MG TAB (CRESTOR) PO SCH (08:15)
[2021-02-17] MEDS: SERTRALINE HCL 50 MG TAB PO SCH (08:16)
[2021-02-17] MEDS ORDERED: FLUBLOK(EGG FREE)(QUAD)INFLUENZA VACC 0.5ML SYRINGE 18YRS & OLDER IM ONE (09:00)
[2021-02-17] MEDS ORDERED: NICOTINE 14 MG/24 HR TRANSDERMAL TD PRN (09:45)
--- NOTE | 2021-02-17 09:59 | MHHPEPDOC ---
General Date Of Admission: Feb 16, 2021 Legal Status: 9.13 Chief Complaint "Depression and anxiety and insomnia. History of Present Illness HISTORY OF THE PRESENT ILLNESS: Patient is a 70 -year-old , Retired, Domiciled, , male, who reports increasing depression and anxiety over the course of a year. He also admits to insomnia for over a decade. States that when he goes to bed he goes roughly around 1030 but he cannot fall asleep, and he is up all night. States that if he does fall asleep he can sleep through the night but it is rare for him to get a full nights rest. He had a sleep study in [place] a year and a half ago and it was reported that he slept less than 10 minutes of the 7 hours that he was there. He goes to the [facility] in [place] and has not been given any medications for insomnia. States that he has been seen by hypnotist but that did not work after an hour and a half. He tried group therapy that was unsuccessful. Also he tr ied acupuncture and had many treatments but that was not successful. States that back in [place] had worked a great but his reported that he was sleepwalking and he stopped taking it. Patient has had 1 psychiatric admission from /09/11 for depression. At that time, his was dying of cancer. Patient appears very depressed and anxious in the interview, reports feeling overwhelmed and frustrated. States, "I am financially secure, I have a wonderful marriage and , we traveled all over the world, and I do not really have a reason to be depressed, but I do not get good rest. " PER ED REPORT: PT has been struggling with insomnia, anxiety and depression. He has one previous admission in 2008 when his first was suffering with terminal cancer. He was inpatient for 8 days and although he felt better when he left he remembers being terrified of some of the other PTs and the psychiatrist told him he would never be ready for d/c "I will never forget his words". About two years ago PT developed insomnia and he attempted to utilize hypnosis and acupuncture. Recently a friend gave him a Xanax just so he could get some rest. Two to three weeks ago PT had a headache and stomach simultaneously which struck him as weird "I never get either of those". On Saturday PT woke with strong depression and he attempted to work thru it on his own and with the support of his of 2 1/2 years. He presented to ED 02/10 and was d/c with referrals. PT then presented to the [facility] and spent time with Zainab Daugherty and [facility] [place]. [facility]. PT was hopeful that he could avoid inpatient but now states "I dont know if I can do this anymore". PT states he remembers feeling the same way prior to his [facility] admission in 2008. He states he has no reason to be depressed as his life is great. PT is tearful thru E. He denies alcohol/drugs use and that he smokes 1 pack daily. He denies SI/HI but states he needs help so he will not get worse. He has lost 12 lbs. in one week and his stomach is constantly in knots. 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 At end of [facility] PT states that he is grateful he will be admitted and asked that TW speak with his to explain the process. Psychiatric Review of Systems Depression (2 or more weeks): depressed mood, insomnia/hypersomnia, decreased energy, difficulty concentrating, appetite changes (has lost 10-12 # in the past week, has had poor appetite), other (helpless) Psychosis: denies PTSD: other (Doesn't think that he has PTSD but was in the [place] War) Anxiety/ 6 months or more of: sleep disturbance Past Psychiatric History Previous Psychiatric Diagnosis: Depression, Anxiety, Insomnia Previous Psychiatric Admissions: Admission in 2008 Suicide Attempts: Denies Psychiatric Follow-up: [facility] Currently, was seeing Dr. 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 Allergies; NKDA Head Injury: No Seizures: No Hospitalizations: Yes Surgeries: Yes Family Medical/Psychiatric HX Medical Problems Father - Colon Cancer Mother - alive doing well Psychiatric Disorders: No Addiction: No Suicide Attemps/Completions: No Addiction History nicotine (1 ppd) Social History Childhood: [place], had older and younger brothers, did well in school Abuse/Trauma: yes Current Living Situation: lives with , small dog Education: 2 Associate degrees from [employer] Employment: Retired, [employer] Social Support: Legal: None Marital: , 2 boys Mental Status Examination General Appearance: well groomed, appears stated age, hospital scubs/clothing Build: other (short statured) Demeanor: average Behavior: cooperative Speech: clear Mood: depressed, anxious Affect: constricted Thought Process: logical/linear Thought Content (Delusions): none reported Thought Content (Other): none reported Thought Content (Aggressive): none reported Perception (Hallucinations): none reported Perception (Other): none reported Cognition(Intelligence Est.): above average Oriented: Awake, Alert, Oriented times three Insight: fair Judgment: Fair Psychosis: Denies Diagnoses Major depressive disorder, recurrent episode, moderate Insomnia Nicotine use disorder A-FIB/CHADSVASC A-FIB History Current/History of A-Fib/PAF?: No Current PO Anticoag Therapy: No Assessment Patient is a 70-year-old , retired, domiciled, male who was encouraged to admit himself to the hospital for his depression, anxiety and insomnia (reports never being able to go to sleep x10+ years) patient has had sleep study , hypnotherapy, acupuncture, was trialed on Ambien but discontinued due to sleepwalking. He states he has never rested and does not sleep more than 1 to 2 hours a night he reports that he is quite happy with his life feels he has a good marriage and does not report any other stressors. He is a [place] , lost his first 10 years ago or more due to cancer. He has since remarried and states that his and he have a loving relationship. Patient is agreeable to continue Zoloft 50 mg, will start patient on mirtazapine 7.5 mg, he is encouraged to take Atarax 50 mg if mirtazapine does not allow him for sleep. Be encouraged to attend groups, be engaged in individual therapy, participate in milieu therapy, be afforded a safe environment, and medication management. We will discharge patient when he is stable Initial Treatment Plan 1. Patient was admitted on a [9.39] status. 2. Complete history was obtained. 3. With patients permission, family will be contacted and database will be expanded. 4. Patients medication regimen will be reviewed and changed accordingly. 5. Patient will be provided with protected environment. 6. Patient will be treated with individual, group, and milieu therapies. 7. Patient will receive supportive psych-education. 8. Discharge planning will commence immediately. 9. Outpatient follow-up treatment will be strongly recommended. 10. The initial treatment plan will focus initially on: * Depression. * Risk for suicide. ESTIMATED LENGTH OF STAY: 3-5 DAYS. TIME SPENT COUNSELING AND COORDINATING INITIAL CARE: 60 minutes. Tobacco Cessation Screen Tobacco Cessation Tx Ordered?: Yes N/A-No Antipsychotics Vital Signs Vital Signs Date Time Temp Pulse Resp B/P (MAP) Pulse Ox O2 Delivery O2 Flow Rate FiO2 02/17/21 07:14 97.5 81 16 146/76 (99) 99 Room Air Laboratory Data 24H Labs Laboratory Tests 2 02/16/21 11:16: Nucleated Red Blood Cells % (auto) 0.0, Erythrocyte Sedimentation Rate 7, Anion Gap 6L, Glomerular Filtration Rate 43.8, Calcium Level 9.3, Total Bilirubin 0.7, Direct Bilirubin 0.2, Aspartate Amino Transf (AST/SGOT) 32, Alanine Aminotransferase (ALT/SGPT) 65, Alkaline Phosphatase 126H, C-Reactive Protein, Quantitative 0.30, Total Protein 7.2, Albumin 3.6, Albumin/Globulin Ratio 1.0, Vitamin B12 Level 416, Thyroid Stimulating Hormone (TSH) 1.870, Salicylates Leve l 2.7L, Urine Opiates Screen NEGATIVE, Urine Methadone Screen NEGATIVE, Acetaminophen Level < 2.0L, Urine Barbiturates Screen NEGATIVE, Urine Phencyclidine Screen NEGATIVE, Urine Amphetamines Screen NEGATIVE, Urine Benzodiazepines Screen NEGATIVE, Urine Cocaine Metabolite Screen NEGATIVE, Urine Cannabinoids Screen NEGATIVE, Ethyl Alcohol Level 0.003, Syphilis Serology NONREACTIVE 02/16/21 13:01: Coronavirus (COVID-19)(PCR) NEGATIVE, Influenza Type A (RT-PCR) NEGATIVE, Influ nirmal Type B (RT-PCR) NEGATIVE, Respiratory Syncytial Virus (PCR) NEGATIVE CBC/BMP Laboratory Tests 02/16/21 11:16 Medications Scheduled Chlorthalidone (Chlorthalidone) 25 Mg Tablet, 25 MG PO DAILY, (Reported) Glimepiride (Glimepiride) 2 Mg Tablet, 2 MG PO DAILY, (Reported) Hydroxyzine HCl (Hydroxyzine HCl) 25 Mg Tablet, 25 MG PO Q4H, (Reported) Lisinopril (Lisinopril) 40 Mg Tab, 40 MG PO DAILY, (Reported) Rosuvastatin Calcium (Rosuvastatin Calcium) 10 Mg Tablet, 10 MG PO DAILY, (Reported) Sertraline Hcl (Sertraline HCl) 50 Mg Tablet, 50 MG PO DAILY, (Reported) Allergies Coded Allergies: No Known Allergies (Verified , 06/30/08) CRIS SANCHEZ NP Feb 17, 2021 09:38
--- NOTE | 2021-02-17 11:53 | HPEPDOC ---
[facility] Medical History & Physical Date of Admission Feb 17, 2021 Date of Service: Feb 17, 2021 History and Physical CHIEF COMPLAINT: "Feeling depressed" HISTORY OF PRESENT ILLNESS: 78-year-old male with a past medical history of hypertension, type 2 diabetes mellitus, and hyperlipidemia presented to the emergency room department with complaints of feeling depressed. He reports increasing depression and anxiety over the course of 1 year, which he attributes to home stressors including his who has terminal illness. His as well as himself noted feeling more depressed therefore came to the hospital to seek help as his antidepressants were not helping. At this junction, he reports having a penile sore for over a month which he was hoping to have evaluated. He has not had any sexual encounters other than his for over 10 years. He denies discharge. He denies frequency, dysuria, and urgency. He reports being evaluated in the urgent care clinic 1 month ago and receiving amoxicillin which helped but it has been recurrent. He reports whenever he takes amoxicillin it goes away but then reoccurs. Otherwise, he denies headaches, blurry vision, chest pain, shortness of breath, palpitations, abdominal pain, nausea, vomiting, problem with urination and bowel movements. PAST MEDICAL HISTORY: As above. PAST SURGICAL HISTORY: In 2016 reports having partial nephrectomy of his right kidney SOCIAL HISTORY: and lives with his . He smokes 1 pack a day (reported quitting approximately 2 to 3 days ago). He denies use of recreational drugs and alcohol use. FAMILY HISTORY: Did not report having any significant family history ALLERGIES: Please see below. REVIEW OF SYSTEMS: 10 point review of system was negative except for what is noted in the HPI HOME MEDICATIONS: Please see below. PHYSICAL EXAMINATION: VITAL SIGNS: Please see below General: Lying in bed, no acute distress Head/Neck/Throat: Trachea midline, mucous membranes moist Eyes: Sclera anicteric, no erythema or discharge appreciated bilaterally Thorax: Normal respiratory effort on room air, lungs clear to auscultation bilaterally, no wheezes/rales/rhonchi Cardiovascular: Normal rate, regular rhythm, normal S1, S2; no S3, S4, rubs/gallops/murmurs Abdomen: Bowel sounds present, soft/nontender/nondistended Genitourinary: No CVA tenderness, no Tyson in place Musculoskeletal: Moving all extremities, no edema Skin: Over dorsal aspect of the neck of the gland there is 0.2 to 0.3 mm linear lesion. There is no erythema or discharge appreciated Neurologic: AAOx3, speech fluent and goal-directed, no focal deficits, grossly intact LABORATORY DATA: See below. IMAGING: No imaging to review at this time MICROBIOLOGY: Please see below. ASSESSMENT/PLAN: #Chronic kidney disease -Creatinine on 02/10/2021 was 1.56. During this admission it is 1.66. We will continue to monitor and repeat labs tomorrow. He did endorse having poor p.o. intake for the last 1 week which he reports is better now. -Hold lisinopril and hydrochlorothiazide for now, once renal function stabilizes will resume antihypertensives #Penile lesion -Asked infectious disease further recommendations before subjecting patient to further tests and possibly antivirals #Hypertension -Continue with lisinopril and chlorthalidone #[id number] diabetes mellitus -Continue with glimepiride #Tobacco dependence -Nicotine patch #Mood disorder/depression -Management as per psychiatry team #DVT prophylaxis -Encourage ambulation History and physical examination was done in the presence of a regulatory submissions associate. Vital Signs Vital Signs Date Time Temp Pulse Resp B/P (MAP) Pulse Ox O2 Delivery O2 Flow Rate FiO2 02/17/21 07:14 97.5 81 16 146/76 (99) 99 Room Air Laboratory Data Labs 24H Laboratory Tests 2 02/16/21 11:16: Nucleated Red Blood Cells % (auto) 0.0, Erythrocyte Sedimentation Rate 7, Anion Gap 6L, Glomerular Filtration Rate 43.8, Calcium Level 9.3, Total Bilirubin 0.7, Direct Bilirubin 0.2, Aspartate Amino Transf (AST/SGOT) 32, Alanine Aminotransferase (ALT/SGPT) 65, Alkaline Phosphatase 126H, C-Reactive Protein, Quantitative 0.30, Total Protein 7.2, Albumin 3.6, Albumin/Globulin Ratio 1.0, Vitamin B12 Level 416, Thyroid Stimulating Hormone (TSH) 1.870, Salicylates Level 2.7L, Urine Opiates Screen NEGATIVE, Urine Methadone Screen NEGATIVE, Acetaminophen Level < 2.0L, Urine Barbiturates Screen NEGATIVE, Urine Phencyclidine Screen NEGATIVE, Urine Amphetamines Screen NEGATIVE, Urine Benzodiazepines Screen NEGATIVE, Urine Cocaine Metabolite Screen NEGATIVE, Urine Cannabinoids Screen NEGATIVE, Ethyl Alcohol Level 0.003, Syphilis Serology NONREACTIVE 02/16/21 13:01: Coronavirus (COVID-19)(PCR) NEGATIVE, Influenza Type A (RT-PCR) NEGATIVE, Influenza Type B (RT-PCR) NEGATIVE, Respiratory Syncytial Virus (PCR) NEGATIVE CBC/BMP Laboratory Tests 02/16/21 11:16 Home Medications Scheduled Chlorthalidone (Chlorthalidone) 25 Mg Tablet, 25 MG PO DAILY Glimepiride (Glimepiride) 2 Mg Tablet, 2 MG PO DAILY Hydroxyzine HCl (Hydroxyzine HCl) 25 Mg Tablet, 25 MG PO Q4H Lisinopril (Lisinopril) 40 Mg Tab, 40 MG PO DAILY Rosuvastatin Calcium (Rosuvastatin Calcium) 10 Mg Tablet, 10 MG PO DAILY Sertraline Hcl (Sertraline HCl) 50 Mg Tablet, 50 MG PO DAILY Allergies Coded Allergies: No Known Allergies (Verified , 06/30/08) A-FIB/CHADSVASC A-FIB History Current/History of A-Fib/PAF?: No LUIS ANGEL MOSS M.D. Feb 17, 2021 09:29
[2021-02-17] MEDS: valACYclovir HCL 500 MG TAB PO SCH ×2 (12:14→20:34)
[2021-02-17 14:42] LABS: HEPATITIS C VIRUS ABY INDEX < 0.0 INDEX (<0.8); HIV 1&2 SCREEN CENTAUR NEGATIVE (NEGATIVE)
--- NOTE | 2021-02-17 16:16 | CR ---
CONSULTATION DATE: 02/16/2021 REASON FOR CONSULTATION: Penile lesion. HISTORY OF PRESENT ILLNESS: Junito Rosario is a 70-year-old male who was recently admitted to the inpatient mental health unit due to anxiety and insomnia. On admission the patient noted a lesion on his penis, which has been present since January 04. Patient states he noticed the lesion come on suddenly on January 04. He went to urgent care and was given a prescription for amoxicillin. He states that after finishing the prescription the lesion had completely resolved after the amoxicillin; however, he states 2-3 days later the lesion had returned in the same spot. He states it is a small ulceration, which is painful and irritated. on the shaft on his penis. He denies ever having a lesion like this before. He denies any history of sexual transmitted infections (STIs) and sexual transmitted disease (STDs), including genital herpes. He denies any known sexual contact with anyone with genital herpes. He states he has been sexually active with his of 5 years, most recently 1 month ago. He denies any knowledge that she has had contact with anyone or a diagnosis of genital herpes. He states that he has had no other partners in the past 5 years, and prior to this his last partner was his first of over 20 years. The patient denies any discharge from the lesion. The patient denies any penile discharge or dysuria. The patient denies any fevers, chills, or abdominal pain. He also notes that he did return to urgent care when the lesion recurred the second time, and he was given another course of amoxicillin. He did not have any resolution of the lesion after this. He has noted a 12-pound weight loss in the past week due to decreased appetite and anxiety. MEDICAL HISTORY: 1. Hypertension. 2. Type 2 diabetes. 3. Hyperlipidemia. 4. Insomnia. 5. Anxiety. 6. Depression. SURGICAL HISTORY: Cancer in the right kidney, status post partial nephrectomy. FAMILY MEDICAL HISTORY: Father of colon cancer. SOCIAL HISTORY: Patient admits to smoking cigarettes, one pack per day. Patient lives at home with his . HOME MEDICATIONS: - chlorthalidone 25 mg - glimepiride 2 mg - hydroxyzine 25 mg every 4 hours - lisinopril 40 mg - rosuvastatin 10 mg - sertraline 50 mg ALLERGIES: No known drug allergies. REVIEW OF SYSTEMS: Denies fever, chills, night sweats. Reports weight loss and sleep disturbance per history of present illness (HPI). HEENT: Denies headaches. RESPIRATORY: Denies shortness of breath, cough. CARDIAC: Denies chest pain, palpitations. ABDOMEN: Denies nausea, vomiting, abdominal pain, diarrhea. GENITOURINARY: Denies dysuria, urinary frequency, urinary urgency, penile discharge. LYMPHATIC: Denies any swollen lymph nodes. PHYSICAL EXAMINATION: VITAL SIGNS: Temperature 97.5 degrees Fahrenheit temporal, heart rate 81, respiratory rate 16, blood pressure 146/76, oxygen saturation 99% on room air. GENERAL: Patient appears stated age, comfortable, sitting on a bed in no acute distress. HEENT: Normocephalic, atraumatic. Moist mucous membranes. No lesions in the mouth appreciated. NECK: Supple. No lymphadenopathy or thyromegaly. LUNGS: Clear to auscultation bilaterally. No wheezing, rhonchi, or rales. HEART: Regular rate and rhythm, normal S1 and S2. ABDOMEN: Soft, nontender, nondistended. Bowel sounds present. Male genital exam: Patient has a small ulceration on the shaft of his penis, which appears superficial without drainage, discharge, surrounding erythema, warmth. EXTREMITIES: No edema. NEUROLOGIC: No focal deficits appreciated. Moves all four extremities. LYMPHATIC: No cervical or inguinal lymphadenopathy appreciated. LABORATORY DATA: From 02/16/2021, white blood cell count 8.9, hemoglobin 16.5, hematocrit 48.1, platelet count 215. Sodium 138, potassium 4.0, chloride 104, bicarbonate 28, BUN 26, creatinine 1.66, glucose 106, calcium 9.3. Total bilirubin 0.7, direct bilirubin 0.2, AST 32, ALT 55, alkaline phosphatase 126, CRP 0.3, total protein 7.2, albumin 3.6. Vitamin B12 of 416. TSH 1.870. Syphilis serology is nonreactive. ASSESSMENT AND PLAN: Junito Rosario is a 70-year-old male who is currently admitted to inpatient mental health, evaluated today for a penile lesion with concern for infectious etiology. There does not appear to be any concern for bacterial skin infection, as the ulceration appears clean at this time. Considering his symptoms, herpes simplex virus (HSV) is on the differential. He has never in our system been screened for HIV or hepatitis C and has never been tested for HSV. Given the small size of the lesion, there is not a good source to swab to send out for HSV testing. We will run serum HSV PCR as well as HIV and hepatitis C testing. We will start him on a course of Valtrex 500 mg twice a day for 7 days and monitor for improvement.
[2021-02-17 16:40] VITALS: BP 100/63
[2021-02-17] MEDS: MIRTAZAPINE 7.5MG PER 1/2 TABLET PO SCH (20:35)
[2021-02-17] MEDS: hydrOXYzine 50 MG TAB PO PRN (22:11)
[2021-02-18 06:30] VITALS: BP 138/72
[2021-02-18] MEDS: valACYclovir HCL 500 MG TAB PO SCH ×2 (07:52→21:13)
[2021-02-18] MEDS: SERTRALINE HCL 50 MG TAB PO SCH (07:52)
[2021-02-18] MEDS: GLIMEPIRIDE 2 MG TAB PO SCH (07:52)
[2021-02-18] MEDS: ROSUVASTATIN 10 MG TAB (CRESTOR) PO SCH (07:52)
[2021-02-18] MEDS: lisinopriL 40 MG TAB PO SCH (07:52)
[2021-02-18] MEDS: CHLORTHALIDONE 25 MG TAB PO SCH (07:52)
[2021-02-18] MEDS ORDERED: LORazepam 0.5 MG TAB PO ONE (08:00)
[2021-02-18] MEDS ORDERED: amLODIPine 5 MG TAB PO SCH (09:00)
[2021-02-18 11:19] LABS: CALCIUM LEVEL 8.7 MG/DL (8.8-10.2); CREATININE FOR GFR 1.92 MG/DL (0.70-1.30); MAGNESIUM LEVEL 2.4 MG/DL (1.8-2.4); PHOSPHORUS LEVEL 3.4 MG/DL (2.5-4.9)
[2021-02-18 13:19] VITALS: BP 92/50
[2021-02-18 16:11] VITALS: BP 110/60
--- NOTE | 2021-02-18 16:33 | MHIPN ---
[facility] PROGRESS NOTE DATE: 02/18/2021 VITAL SIGNS: Blood pressure 92/50, pulse 80, temperature 98.6. This is a video assessment. He is aware of it and agrees to it, and he is in the inpatient psychiatry unit. He is seen in the presence of staff. I am at home. CHIEF COMPLAINT: Feels a bit anxious. SUBJECTIVE: Seen for followup. Indicates has been feeling somewhat anxious this morning but says feels he may have slept but that he woke up, and then when he did was feeling anxious. Had had these sensations in the past. He took some lorazepam. [place] it helped but that he felt a bit tired afterward. Spoke of yesterday being a better day overall and had better sleep the previous night. Says tends to get frustrated and upset when has not been able to sleep. Has seen various people, clinicians, including through the [facility]. MENTAL STATUS EXAMINATION: Neat, cooperative, though a bit guarded. Coherent. No agitation. No psychomotor retardation. Mildly irritable at times. Possible mild anxiety. Denies any suicidal thoughts or intents. No homicidal ideas or intents. No evidence of any psychosis. Judgment fair, as is insight. ASSESSMENT: 1. Major depressive disorder, recurrent, moderate. 2. Insomnia. Has been anxious, concerned about sleep, which has been an ongoing issue with a relatively all of his old symptoms of grief, and this also secondarily impacts his mood, anxieties, and perpetuates the cycle. PLAN: He is to continue with sertraline at 50 mg daily, and I would suggest that this is raised in the next couple of days, for example, to 75 mg and then 100 mg if need be to help address his moods and anxiety. This may help impact the quality of sleep as well. He has had chronic difficulties with sleep. Will monitor this and may require specialist followup upon discharge, seeing a sleep specialist. He is to use the lorazepam as needed in the short term. It is preferable done when he is in hospital. The rationale for using the sertraline as well as the drawbacks and aims are discussed. He is to be encouraged to participate in activities in the unit. Further recommendations to be made depending on the clinical picture.
[2021-02-18] MEDS: MIRTAZAPINE 7.5MG PER 1/2 TABLET PO SCH (21:13)
[2021-02-19] MEDS: hydrOXYzine 50 MG TAB PO PRN (01:48)
[2021-02-19 06:21] VITALS: BP 149/70
[2021-02-19] MEDS: ROSUVASTATIN 10 MG TAB (CRESTOR) PO SCH (08:20)
[2021-02-19] MEDS: valACYclovir HCL 500 MG TAB PO SCH ×2 (08:20→22:01)
[2021-02-19] MEDS: SERTRALINE HCL 50 MG TAB PO SCH (08:20)
[2021-02-19] MEDS: GLIMEPIRIDE 2 MG TAB PO SCH (08:20)
[2021-02-19 08:25] LABS: CALCIUM LEVEL 9.3 MG/DL (8.8-10.2); CREATININE FOR GFR 1.75 MG/DL (0.70-1.30); GLOMERULAR FILTRATION RATE 41.2 (>42); MAGNESIUM LEVEL 2.2 MG/DL (1.8-2.4); PHOSPHORUS LEVEL 3.2 MG/DL (2.5-4.9); POTASSIUM SERUM 4.1 MEQ/L (3.5-5.1)
[2021-02-19 16:15] VITALS: BP 134/70
[2021-02-19 16:20] VITALS: BP 138/73
[2021-02-19] MEDS: MIRTAZAPINE 7.5MG PER 1/2 TABLET PO SCH (22:01)
[2021-02-20 06:19] VITALS: BP 169/88
[2021-02-20] MEDS: GLIMEPIRIDE 2 MG TAB PO SCH (07:56)
[2021-02-20] MEDS: valACYclovir HCL 500 MG TAB PO SCH ×2 (07:56→21:45)
[2021-02-20] MEDS: SERTRALINE HCL 50 MG TAB PO SCH (07:56)
[2021-02-20] MEDS: ROSUVASTATIN 10 MG TAB (CRESTOR) PO SCH (07:56)
[2021-02-20] MEDS: hydrOXYzine 50 MG TAB PO PRN (08:52)
--- NOTE | 2021-02-20 09:58 | MHIPNPDOC ---
[facility] Progress Note Progress Note DATE OF SERVICE: 02/20/21 HISTORY:Patient is a 70 -year-old , Retired, Domiciled, , male, who reports increasing depression and anxiety over the course of a year. He also admits to insomnia for over a decade. States that when he goes to bed he goes roughly around 1030 but he cannot fall asleep, and he is up all night. States that if he does fall asleep he can sleep through the night but it is rare for him to get a full nights rest. He had a sleep study in [place] a year and a half ago and it was reported that he slept less than 10 minutes of the 7 hours that he was there. He [facility] [place] and has not been given any medications for insomnia. States that he has been seen by hypnotist but that did not work after an hour and a half. He tried group therapy that was unsuccessful. Also he tried acupuncture and had many treatments but that was not successful. States that back in Ambien had worked a great but his reported that he was sleepwalking and he stopped taking it. Patient has had 1 psychiatric admission from 06/30/083/09/11 for depression. At that time, his was dying of cancer. Patient appears very depressed and anxious in the interview, reports feeling overwhelmed and frustrated. States, "I am financially secure, I have a wonderful marriage and , we traveled all over the world, and I do not really have a reason to be depressed, but I do not get good rest. " PER ED REPORT: PT has been struggling with insomnia, anxiety and depression. He has one previous admission in 2008 when his first was suffering with terminal cancer. He was inpatient for 8 days and although he felt better when he left he remembers being terrified of some of the other PTs and the psychiatrist told him he would never be ready for d/c "I will never forget his words". About two years ago PT developed insomnia and he attempted to utilize hypnosis and acupuncture. Recently a friend gave him a Xanax just so he could get some rest. Two to three weeks ago PT had a headache and stomach simultaneously which struck him as weird "I never get either of those". On Saturday PT woke with strong depression and he attempted to work thru it on his own and with the support of his of 2 1/2 years. He presented to ED 02/10 and was d/c with referrals. PT then presented to the [facility] and spent time with Zainab Daugherty [facility] [place]. [facility]. PT was hopeful that he could avoid inpatient but now states "I dont know if I can do this anymore". PT states he remembers feeling the same way prior to his [facility] admission in 2008. He states he has no reason to be depressed as his life is great. PT is tearful thru E. He denies alcohol/drugs use and that he smokes 1 pack daily. He denies SI/HI but states he needs help so he will not get worse. He has lost 12 lbs. in one week and his stomach is constantly in knots. 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 At end of [facility] PT states that he is grateful he will be admitted and asked that TW speak with his to explain the process. VITAL SIGNS: See below. NEW TEST RESULTS: . CURRENT MEDICATIONS: See below. MENTAL STATUS EXAMINATION: Patient is a -year old male, who is . Speech: Is fluid, conversant, normal rate, tone and volume Language skills are intact Thought processes including: linear and goal oriented Thought content: denies depression and anxiety. Denies suicidal/homicidal ideation, planning or intent. Abstract reasoning, and computation: fair Description of associations: denies, none observed Description of abnormal or psychotic thoughts: denies, none observed. Judgment: fair Insight: fair Orientation: alert and oriented to person, place, time and situation Recent and remote memory: intact Attention span and concentration: good Language: expansive Fund of knowledge: average Mood: Euthymic Mood Affect: reactive DIAGNOSES: Major depressive disorder, recurrent episode, moderate Insomnia Nicotine use disorder ASSESSMENT: Patient states he was feeling rested after last night but was very anxious this morning. Stated he was speaking to peers had something that felt like a heat wave come over him walked around believe that it was anxious and asked for as needed medications. States that he does have anxiety during the night, was able to fall asleep last night after staying up fairly late. Continues to worry about anxiety but denies depression today. MANAGEMENT PLAN: Increased Zoloft to 75 mg, Increase Mirtazapine to 15 mg and decrease Atarax to 25 mg [id number] PRN for anxiety. Continue medications as ordered, continue all supportive therapies will discharge patient later in the. TIME SPENT: 25 minutes. Vital Signs Vital Signs Date Time Temp Pulse Resp B/P (MAP) Pulse Ox O2 Delivery O2 Flow Rate FiO2 02/20/21 06:19 97.2 88 18 169/88 (115) 97 Room Air Current Medications Current Medications Medications (Trade) Dose Ordered Sig/Gregorio Route PRN Reason Start Time Stop Time Status Last Admin Dose Admin Acetaminophen (Tylenol Tab) 650 mg Q6HP PRN PO HEADACHE or MILD DISCOMFORT 02/16/21 15:15 Al Hydrox/Mg Hydrox/Simethicone (Mylanta) 30 ml Q4HP PRN PO HEARTBURN/INDIGESTION 02/16/21 15:15 Amlodipine Besylate (Norvasc) 5 mg DAILY PO 02/18/21 09:00 02/18/21 13:56 DC Chlorthalidone (Hygroton) 25 mg DAILY PO 02/17/21 09:00 02/18/21 12:40 DC 02/18/21 07:52 Glimepiride (Amaryl) 2 mg DAILY@0800 PO 02/17/21 08:00 02/20/21 07:56 Home Med (Home Med List Complete!) ASDIRECTED XX 02/16/21 16:15 02/16/21 16:17 DC Hydroxyzine HCl (Atarax) 25 mg Q4H PO 02/16/21 17:00 02/17/21 10:00 DC 02/17/21 08:15 Hydroxyzine HCl (Atarax) 50 mg Q6HP PRN PO anxiety/agitation 02/16/21 15:15 02/20/21 08:52 Lisinopril (Prinivil) 40 mg DAILY PO 02/17/21 09:00 02/18/21 12:40 DC 02/18/21 07:52 Magnesium Hydroxide (Milk Of Magnesia) 30 ml DAILYPRN PRN PO CONSTIPATION 02/16/21 15:15 Mirtazapine (Remeron) 7.5 mg QHS PO 02/17/21 21:00 02/19/21 22:01 Nicotine (Nicoderm Cq 14mg) 1 patch DAILYPRN PRN TD NICOTINE WITHDRAWAL 02/17/21 09:45 Rosuvastatin Calcium (Crestor) 10 mg DAILY PO 02/17/21 09:00 02/20/21 07:56 Sertraline HCl (Zoloft) 50 mg DAILY PO 02/17/21 09:00 02/20/21 07:56 Trazodone HCl (Desyrel) 50 mg QHSP PRN PO INSOMNIA 02/16/21 15:15 02/17/21 09:37 DC 02/16/21 20:43 Valacyclovir HCl (Valtrex) 500 mg BID PO 02/17/21 12:00 02/24/21 11:59 02/20/21 07:56 Allergies Coded Allergies: No Known Allergies (Verified , 06/30/08) CRIS SANCHEZ NP Feb 20, 2021 09:58
--- NOTE | 2021-02-20 13:07 | MHIPN ---
[facility] PROGRESS NOTE DATE: 02/19/2021 VITAL SIGNS: Blood pressure 149/70, pulse 89, temperature 98.8. This is a video assessment. He is in the inpatient psychiatry unit. He is seen in the presence of staff. I am at home. CHIEF COMPLAINT: Says feels a bit better. SUBJECTIVE: Seen for followup. Indicates feels a bit better, not as tired as yesterday, but he still had difficulties with sleep. Says woke up. This is after some difficulty getting to sleep, and that he took some hydroxyzine, 50 mg,. Says did not sleep much afterward. Possibly a bit, but that he does not feel as tired as he did yesterday. Appetite has been okay. Moods are calmer. MENTAL STATUS EXAMINATION: Neat, cooperative. No agitation. He is coherent. Affect is restricted in range but reactive. Appears somewhat more relaxed than yesterday. Denies any suicidal thoughts or intents. No homicidal ideas or intents. No evidence of psychosis. Cognition grossly intact. Judgment fair, as is insight. ASSESSMENT: 1. Major depressive disorder, current, moderate. 2. Insomnia. Somewhat less anxious today. This is despite difficulties with sleep, again, last night. PLAN: Continue with sertraline 50 mg daily, but consider increasing it to help address his moods and anxiety. He has the option of using hydroxyzine as needed. It is to be used in the short term. He is to be encouraged to participate in activities in the unit. He will be seeing the assigned clinicians tomorrow.
[2021-02-20 17:39] VITALS: BP 156/84
[2021-02-20] MEDS: MIRTAZAPINE 15 MG TAB PO SCH (21:45)
[2021-02-20] MEDS: hydrOXYzine 25 MG TAB PO PRN (23:18)
[2021-02-21 06:55] VITALS: BP 154/92
[2021-02-21 07:39] LABS: CALCIUM LEVEL 8.8 MG/DL (8.8-10.2); CREATININE FOR GFR 1.33 MG/DL (0.70-1.30); GLOMERULAR FILTRATION RATE 56.6 (>42); MAGNESIUM LEVEL 2.1 MG/DL (1.8-2.4); PHOSPHORUS LEVEL 2.6 MG/DL (2.5-4.9); POTASSIUM SERUM 4.2 MEQ/L (3.5-5.1)
[2021-02-21] MEDS: SERTRALINE HCL 25 MG TABLET PO SCH (08:45)
[2021-02-21] MEDS: ROSUVASTATIN 10 MG TAB (CRESTOR) PO SCH (08:45)
[2021-02-21] MEDS: valACYclovir HCL 500 MG TAB PO SCH ×2 (08:45→21:13)
[2021-02-21] MEDS: ACETAMINOPHEN TAB 650MG DOSE (2X325MG) PO PRN (08:45)
[2021-02-21] MEDS: GLIMEPIRIDE 2 MG TAB PO SCH (08:45)
[2021-02-21] MEDS ORDERED: LORazepam 1 MG TAB PO ONE (12:00)
--- NOTE | 2021-02-21 15:59 | MHIPNPDOC ---
[facility] Progress Note Progress Note DATE OF SERVICE: 02/21/21 HISTORY: Patient is a 70 -year-old , Retired, Domiciled, , male, who reports increasing depression and anxiety over the course of a year. He also admits to insomnia for over a decade. States that when he goes to bed he goes roughly around 1030 but he cannot fall asleep, and he is up all night. States that if he does fall asleep he can sleep through the night but it is rare for him to get a full nights rest. He had a sleep study in [place] a year and a half ago and it was reported that he slept less than 10 minutes of the 7 hours that he was there. He goes to the [facility] in [place] and has not been given any medications for insomnia. States that he has been seen by hypnotist but that did not work after an hour and a half. He tried group therapy that was unsuccessful. Also he tried acupuncture and had many treatments but that was not successful. States that back in Ambien had worked a great but his reported that he was sleepwalking and he stopped taking it. Patient has had 1 psychiatric admission from 06/30/08 to 07/08/08 for depression. At that time, his was dying of cancer. He has since remarried. Patient appears very depressed and anxious in the interview, reports feeling overwhelmed and frustrated. States, "I am financially secure, I have a wonderful marriage and , we traveled all over the world, and I do not really have a reason to be depressed, but I do not get good rest." PER ED REPORT: PT has been struggling with insomnia, anxiety and depression. He has one previous admission in 2008 when his first was suffering with terminal cancer. He was inpatient for 8 days and although he felt better when he left he remembers being terrified of some of the other PTs and the psychiatrist told him he would never be ready for d/c "I will never forget his words". About two years ago PT developed insomnia and he attempted to utilize hypnosis and acupuncture. Recently a friend gave him a Xanax just so he could get some rest. Two to three weeks ago PT had a headache and stomach simultaneously which struck him as weird "I never get either of those". On Saturday PT woke with strong depression and h e attempted to work thru it on his own and with the support of his of 2 1/2 years. He presented to ED 02/10 and was d/c with referrals. PT then presented to the [facility] and spent time with Zainab Daugherty and [facility] [place] He [facility]. PT was hopeful that he could avoid inpatient but now states "I dont know if I can do this anymore". PT states he remembers feeling the same way prior to his [facility] admission in 2008. He states he has no reason to be depressed as his life is great. PT is tearful thru E. He denies alcohol/drugs use and that he smokes 1 pack daily. He denies SI/HI but states he needs help so he will not get worse. He has lost 12 lbs. in one week and his stomach is constantly in knots. 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 At end of [facility] PT states that he is grateful he will be admitted and asked that TW speak with his to explain the process. VITAL SIGNS: See below. NEW TEST RESULTS: . CURRENT MEDICATIONS: See below. RESPONSE TO MEDICATIONS: Patient is not responding well to increase in Mirtazapine from 7.5 mg to 15 mg, ILLNESS EDUCATION: Reviewed with patient that Ativan has addictive properties. Reviewed sleep hygiene and other non-pharmacological methods. MENTAL STATUS EXAMINATION: Patient is a 70 -year-old , Retired, Domiciled, , male, who reports increasing depression and anxiety over the course of a year. Speech: Is fluid, conversant, normal rate, tone and volume Language skills are intact Thought processes including: linear and goal oriented Thought content: denies depression and anxiety. Denies suicidal/homicidal ideation, planning or intent. Abstract reasoning, and computation: fair Description of associations: denies, none observed Description of abnormal or psychotic thoughts: denies, none observed. Judgment: fair Insight: fair Orientation: alert and oriented to person, place, time and situation Recent and remote memory: intact Attention span and concentration: good Language: expansive Fund of knowledge: average Mood: Euthymic Mood Affect: reactive DIAGNOSES: Major depressive disorder, recurrent episode, moderate Insomnia Nicotine use disorder ASSESSMENT: Patient states he was slept poorly last night, only had 2.5 hours of sleep. He is very depressed and anxious, has inability to answer questions appropriately, states "I don't know. I can't even function today" Patient was ordered Ativan 1 mg for his anxiety/agitation. He reports that this was very effective, reports that he slept well this afternoon and that he feels that this is the "magic elixir" Patient given teaching on the addictive issues with Ativan. He was very disappointed. Encouraged patient to take medications as ordered, will consider another anxiolytic that will be appropriate for his age/medical considerations. MANAGEMENT PLAN: Increased Zoloft to 75 mg, Increase Mirtazapine to 15 mg and added Atarax to 25 mg at HS. Continue medications as ordered, continue all supportive therapies will discharge patient later in the week TIME SPENT: 25 minutes. Vital Signs Vital Signs Date Time Temp Pulse Resp B/P (MAP) Pulse Ox O2 Delivery O2 Flow Rate FiO2 02/21/21 06:55 98.7 92 20 154/92 (112) 98 Room Air Laboratory Data 24H Labs Laboratory Tests 2 02/21/21 06:32: Anion Gap 4L, Glomerular Filtration Rate 56.6, Calcium Level 8.8, Phosphorus Level 2.6, Magnesium Level 2.1 CBC/BMP Laboratory Tests 02/21/21 06:32 Current Medications Current Medications Medications (Trade) Dose Ordered Sig/Gregorio Route PRN Reason Start Time Stop Time Status Last Admin Dose Admin Acetaminophen (Tylenol Tab) 650 mg Q6HP PRN PO HEADACHE or MILD DISCOMFORT 02/16/21 15:15 02/21/21 08:45 Al Hydrox/Mg Hydrox/Simethicone (Mylanta) 30 ml Q4HP PRN PO HEARTBURN/INDIGESTION 02/16/21 15:15 Amlodipine Besylate (Norvasc) 5 mg DAILY PO 02/18/21 09:00 02/18/21 13:56 DC Chlorthalidone (Hygroton) 25 mg DAILY PO 02/17/21 09:00 02/18/21 12:40 DC 02/18/21 07:52 Glimepiride (Amaryl) 2 mg DAILY@0800 PO 02/17/21 08:00 02/21/21 08:45 Home Med (Home Med List Complete!) ASDIRECTED XX 02/16/21 16:15 02/16/21 16:17 DC Hydroxyzine HCl (Atarax) 25 mg Q4H PO 02/16/21 17:00 02/17/21 10:00 DC 02/17/21 08:15 Hydroxyzine HCl (Atarax) 25 mg Q6HP PRN PO ANXIETY 02/20/21 09:50 02/20/21 23:18 Hydroxyzine HCl (Atarax) 25 mg QHS PO 02/21/21 21:00 Hydroxyzine HCl (Atarax) 50 mg Q6HP PRN PO anxiety/agitation 02/16/21 15:15 02/20/21 09:51 DC 02/20/21 08:52 Lisinopril (Prinivil) 40 mg DAILY PO 02/17/21 09:00 02/18/21 12:40 DC 02/18/21 07:52 Magnesium Hydroxide (Milk Of Magnesia) 30 ml DAILYPRN PRN PO CONSTIPATION 02/16/21 15:15 Mirtazapine (Remeron) 7.5 mg QHS PO 02/17/21 21:00 02/20/21 09:51 DC 02/19/21 22:01 Mirtazapine (Remeron) 15 mg QHS PO 02/20/21 21:00 02/20/21 21:45 Nicotine (Nicoderm Cq 14mg) 1 patch DAILYPRN PRN TD NICOTINE WITHDRAWAL 02/17/21 09:45 Rosuvastatin Calcium (Crestor) 10 mg DAILY PO 02/17/21 09:00 02/21/21 08:45 Sertraline HCl (Zoloft) 50 mg DAILY PO 02/17/21 09:00 02/20/21 09:51 DC 02/20/21 07:56 Sertraline HCl (Zoloft) 75 mg QAM PO 02/21/21 09:00 02/21/21 08:45 Trazodone HCl (Desyrel) 50 mg QHSP PRN PO INSOMNIA 02/16/21 15:15 02/17/21 09:37 DC 02/16/21 20:43 Valacyclovir HCl (Valtrex) 500 mg BID PO 02/17/21 12:00 02/24/21 11:59 02/21/21 08:45 Allergies Coded Allergies: No Known Allergies (Verified , 06/30/08) CRIS SANCHEZ NP Feb 21, 2021 12:33
[2021-02-21 19:05] VITALS: BP 143/70
[2021-02-21] MEDS: MIRTAZAPINE 15 MG TAB PO SCH (21:13)
[2021-02-21] MEDS: hydrOXYzine 25 MG TAB PO SCH (21:13)
[2021-02-22 06:30] VITALS: BP 144/82
[2021-02-22] MEDS: valACYclovir HCL 500 MG TAB PO SCH ×2 (08:07→21:16)
[2021-02-22] MEDS: SERTRALINE HCL 25 MG TABLET PO SCH (08:07)
[2021-02-22] MEDS: ROSUVASTATIN 10 MG TAB (CRESTOR) PO SCH (08:07)
[2021-02-22] MEDS: GLIMEPIRIDE 2 MG TAB PO SCH (08:07)
[2021-02-22] MEDS: ACETAMINOPHEN TAB 650MG DOSE (2X325MG) PO PRN (08:08)
[2021-02-22 09:08] LABS: HSV-1 DNA Negative (Negative); HSV-2 DNA Negative (Negative)
[2021-02-22 17:25] VITALS: BP 145/65
--- NOTE | 2021-02-22 17:30 | MHIPN ---
[facility], [facility] PROGRESS NOTE DATE: 02/22/2021 VITAL SIGNS: Blood pressure 144/82, pulse 90, temperature 98.6. This is a video assessment, he is seen in the presence of staff, he is in the inpatient psychiatry unit, I am at the clinic, I am seeing him as his clinician, Abby Fontenot, is away today. CHIEF COMPLAINT: Says feels better. SUBJECTIVE: Seen for followup. Indicates has been feeling better, and that his anxiety is somewhat diminished, he feels less anxious, as he slept well last night, he says it is the first he feels he has slept well in a while. He feels rested, his sense of tiredness is not as prominent. Appetite is okay. MENTAL STATUS EXAMINATION: Neat, cooperative, no agitation, no psychomotor retardation, coherent. Affect reactive though restricted, appears somewhat more relaxed than when I had seen him over the weekend. No evidence of any thoughts of harming himself or anyone else, nor of any psychosis. Cognition grossly intact. Judgment and insight possibly improved overall. ASSESSMENT: Major depressive disorder, recurrent, moderate. Insomnia. Feels better, and is less anxious, had a good night's sleep last night, and that has tended to help. PLAN: Continue current care, observations, and should his progress continue, anticipate discharge soon. He will be seeing Ms. Fontenot tomorrow.
[2021-02-22] MEDS: MIRTAZAPINE 15 MG TAB PO SCH (21:16)
[2021-02-22] MEDS: hydrOXYzine 25 MG TAB PO SCH (21:16)
[2021-02-22] MEDS: hydrOXYzine 25 MG TAB PO PRN (22:26)
[2021-02-23 06:03] VITALS: BP 142/81
[2021-02-23] MEDS: ROSUVASTATIN 10 MG TAB (CRESTOR) PO SCH (07:25)
[2021-02-23] MEDS: GLIMEPIRIDE 2 MG TAB PO SCH (07:25)
[2021-02-23] MEDS: valACYclovir HCL 500 MG TAB PO SCH ×2 (07:25→21:36)
[2021-02-23] MEDS ORDERED: LORazepam 1 MG TAB PO STA (09:11)
[2021-02-23] MEDS: SERTRALINE HCL 25 MG TABLET PO SCH (09:34)
--- NOTE | 2021-02-23 14:58 | MHIPNPDOC ---
[facility] Progress Note Progress Note DATE OF SERVICE: 02/23/21 HISTORY: Patient is a 70 -year-old , Retired, Domiciled, , male, who reports increasing depression and anxiety over the course of a year. He a lso admits to insomnia for over a decade. States that when he goes to bed he goes roughly around 1030 but he cannot fall asleep, and he is up all night. States that if he does fall asleep he can sleep through the night but it is rare for him to get a full nights rest. He had a sleep study in [place] a year and a half ago and it was reported that he slept less than 10 minutes of the 7 hours that he was there. He goes to the [facility] in [place] and has not been given any medications for insomnia. States that he has been seen by hypnotist but that did not work after an hour and a half. He tried group therapy that was unsuccessful. Also he tried acupuncture and had many treatments but that was not successful. States that back in Ambien had worked a great but his reported that he was sleepwalking and he stopped taking it. Patient has had 1 psychiatric admission from 06/30/08 to 07/08/08 for depression. At that time, his was dying of cancer. He has since remarried. Patient appears very depressed and anxious in the interview, reports feeling overwhelmed and frustrated. States, "I am financially secure, I have a wonderful marriage and , we traveled all over the world, and I do not really have a reason to be depressed, but I do not get good rest." VITAL SIGNS: See below. NEW TEST RESULTS: . CURRENT MEDICATIONS: See below RESPONSE TO MEDICATIONS: Patient reporting intermittent sleep with Mirtazapine 15 mg. Denies any side effects of adverse reactions. Discontinued mirtazapine after discussion with the patient. Trazodone 100 mg ordered. Medication education given. ILLNESS EDUCATION: Reviewed with patient and his patient's current medication regimen. asked about Ambien. Patient does not want to take Ambien after his last prescription of it in the he reported that he was sleepwalking and behaving bizarrely. MENTAL STATUS EXAMINATION: Patient is a 70 -year-old , Retired, Domiciled, , male, who reports increasing depression and anxiety over the course of a year. Speech: Is fluid, conversant, normal rate, tone and volume Language skills are intact Thought processes including: linear and goal oriented Thought content: Reports depression and moderate anxiety. Denies suicidal/h omicidal ideation, planning or intent. Abstract reasoning, and computation: fair Description of associations: denies, none observed Description of abnormal or psychotic thoughts: denies, none observed. Judgment: fair Insight: fair Orientation: alert and oriented to person, place, time and situation Recent and remote memory: intact Attention span and concentration: good Language: expansive Fund of knowledge: average Mood: Depressed mood Affect: Constricted DIAGNOSES: Major depressive disorder, recurrent episode, moderate Insomnia Nicotine use disorder ASSESSMENT: Patient states he was slept poorly last night. He reports being depressed and anxious today, patient was mildly irritable and very anxious encouraged to take an Ativan 0.5 mg which was effective today. Spoke to his about his current regimen patient does not feel stable to be discharged states that he really wants his sleep to improve before he can be discharged to home MANAGEMENT PLAN: I discontinued mirtazapine, ordered trazodone 100 mg. TIME SPENT: 25 minutes. Vital Signs Vital Signs Date Time Temp Pulse Resp B/P (MAP) Pulse Ox O2 Delivery O2 Flow Rate FiO2 02/23/21 06:03 98.2 81 18 142/81 (101) 96 Room Air Current Medications Current Medications Medications (Trade) Dose Ordered Sig/Gregorio Route PRN Reason Start Time Stop Time Status Last Admin Dose Admin Acetaminophen (Tylenol Tab) 650 mg Q6HP PRN PO HEADACHE or MILD DISCOMFORT 02/16/21 15:15 02/22/21 08:08 Al Hydrox/Mg Hydrox/Simethicone (Mylanta) 30 ml Q4HP PRN PO HEARTBURN/INDIGESTION 02/16/21 15:15 Amlodipine Besylate (Norvasc) 5 mg DAILY PO 02/18/21 09:00 02/18/21 13:56 DC Chlorthalidone (Hygroton) 25 mg DAILY PO 02/17/21 09:00 02/18/21 12:40 DC 02/18/21 07:52 Glimepiride (Amaryl) 2 mg DAILY@0800 PO 02/17/21 08:00 02/23/21 07:25 Home Med (Home Med List Complete!) ASDIRECTED XX 02/16/21 16:15 02/16/21 16:17 DC Hydroxyzine HCl (Atarax) 25 mg Q4H PO 02/16/21 17:00 02/17/21 10:00 DC 02/17/21 08:15 Hydroxyzine HCl (Atarax) 25 mg Q6HP PRN PO ANXIETY 02/20/21 09:50 02/22/21 22:26 Hydroxyzine HCl (Atarax) 25 mg QHS PO 02/21/21 21:00 02/22/21 21:16 Hydroxyzine HCl (Atarax) 50 mg Q6HP PRN PO anxiety/agitation 02/16/21 15:15 02/20/21 09:51 DC 02/20/21 08:52 Lisinopril (Prinivil) 40 mg DAILY PO 02/17/21 09:00 02/18/21 12:40 DC 02/18/21 07:52 Magnesium Hydroxide (Milk Of Magnesia) 30 ml DAILYPRN PRN PO CONSTIPATION 02/16/21 15:15 Mirtazapine (Remeron) 7.5 mg QHS PO 02/17/21 21:00 02/20/21 09:51 DC 02/19/21 22:01 Mirtazapine (Remeron) 15 mg QHS PO 02/20/21 21:00 02/22/21 21:16 Nicotine (Nicoderm Cq 14mg) 1 patch DAILYPRN PRN TD NICOTINE WITHDRAWAL 02/17/21 09:45 Rosuvastatin Calcium (Crestor) 10 mg DAILY PO 02/17/21 09:00 02/23/21 07:25 Sertraline HCl (Zoloft) 50 mg DAILY PO 02/17/21 09:00 02/20/21 09:51 DC 02/20/21 07:56 Sertraline HCl (Zoloft) 75 mg QAM PO 02/21/21 09:00 02/22/21 08:07 Trazodone HCl (Desyrel) 50 mg QHSP PRN PO INSOMNIA 02/16/21 15:15 02/17/21 09:37 DC 02/16/21 20:43 Valacyclovir HCl (Valtrex) 500 mg BID PO 02/17/21 12:00 02/24/21 11:59 02/23/21 07:25 Allergies Coded Allergies: No Known Allergies (Verified , 06/30/08) CRIS SANCHEZ NP Feb 23, 2021 10:22
[2021-02-23 17:50] VITALS: BP_SYST 156; BP_SYST 160; BP_DIAS 82; BP_DIAS 84
[2021-02-23] MEDS: traZODone 100 MG TAB PO SCH (21:36)
[2021-02-24 06:42] VITALS: BP 137/85
[2021-02-24] MEDS: valACYclovir HCL 500 MG TAB PO SCH (08:34)
[2021-02-24] MEDS: GLIMEPIRIDE 2 MG TAB PO SCH (08:34)
[2021-02-24] MEDS: SERTRALINE HCL 25 MG TABLET PO SCH (08:34)
[2021-02-24] MEDS: ROSUVASTATIN 10 MG TAB (CRESTOR) PO SCH (08:34)
[2021-02-24] MEDS: ACETAMINOPHEN TAB 650MG DOSE (2X325MG) PO PRN (09:07)
--- NOTE | 2021-02-24 14:57 | MHIPNPDOC ---
[facility] Progress Note Progress Note DDATE OF SERVICE: 02/24/21 HISTORY: Patient is a 70 -year-old , Retired, Domiciled, , male, who reports increasing depression and anxiety over the course of a year. He also admits to insomnia for over a decade. States that when he goes to bed he goes roughly around 1030 but he cannot fall asleep, and he is up all night. States that if he does fall asleep he can sleep through the night but it is rare for him to get a full nights rest. He had a sleep study in [place] a year and a half ago and it was reported that he slept less than 10 minutes of the 7 hours that he was there. He goes to the [facility] in [place] and has not been given any medications for insomnia. States that he has been seen by hypnotist but that did not work after an hour and a half. He tried group therapy that was unsuccessful. Also he tried acupuncture and had many treatments but that was not successful. States that back in Ambien had worked a great but his reported that he was sleepwalking and he stopped taking it. Patient has had 1 psychiatric admission from 06/30/08 to 07/08/08 for depression. At that time, his was dying of cancer. He has since remarried. Patient appears very depressed and anxious in the interview, reports feeling overwhelmed and frustrated. States, "I am financially secure, I have a wonderful marriage and , we traveled all over the world, and I do not really have a reason to be depressed, but I do not get good rest." VITAL SIGNS: See below. NEW TEST RESULTS: . CURRENT MEDICATIONS: See below RESPONSE TO MEDICATIONS: Patient reporting improved sleep with Trazodone 100 mg. Denies any side effects of adverse reactions. ILLNESS EDUCATION: Reviewed current medications and potential side effects. MENTAL STATUS EXAMINATION: Patient is a 70 -year-old , Retired, Domiciled, , male, who reports increasing depression and anxiety over the course of a year. Speech: Is fluid, conversant, normal rate, tone and volume Language skills are intact Thought processes including: linear and goal oriented Thought content: Reports decreased depression and milder anxiety. Denies suicidal/homicidal ideation, planning or intent. Abstract reasoning, and computation: fair Description of associations: denies, none observed Description of abnormal or psychotic thoughts: denies, none observed. Judgment: good Insight: good Orientation: alert and oriented to person, place, time and situation Recent and remote memory: intact Attention span and concentration: good Language: expansive Fund of knowledge: average Mood: improved mood Affect: brighter affect DIAGNOSES: Major depressive disorder, recurrent episode, moderate Insomnia Nicotine use disorder ASSESSMENT: Patient states he was slept better last night. He reports less depressed and anxious today. His mood is improved and his affect is brighter. Was observed talking to his this director of materials, states "I had to call her and tell her that I slept the whole night." Patient was hopeful to be discharged on Saturday. Reviewed with patient that provider is not in over the weekend will discharge on Saturday if patient feels that his sleep has improved enough to go home. Patient is agreeable to this discharge plan MANAGEMENT PLAN: Continue all medications as ordered. Patient to be discharged when he feels that he is stable. TIME SPENT: 25 minutes. Vital Signs Vital Signs Date Time Temp Pulse Resp B/P (MAP) Pulse Ox O2 Delivery O2 Flow Rate FiO2 02/24/21 06:42 98.2 87 16 137/85 (102) 95 Room Air Laboratory Data 24H Labs Laboratory Tests 2 02/24/21 09:37: Current Medications Current Medications Medications (Trade) Dose Ordered Sig/Gregorio Route PRN Reason Start Time Stop Time Status Last Admin Dose Admin Acetaminophen (Tylenol Tab) 650 mg Q6HP PRN PO HEADACHE or MILD DISCOMFORT 02/16/21 15:15 02/24/21 09:07 Al Hydrox/Mg Hydrox/Simethicone (Mylanta) 30 ml Q4HP PRN PO HEARTBURN/INDIGESTION 02/16/21 15:15 Amlodipine Besylate (Norvasc) 5 mg DAILY PO 02/18/21 09:00 02/18/21 13:56 DC Chlorthalidone (Hygroton) 25 mg DAILY PO 02/17/21 09:00 02/18/21 12:40 DC 02/18/21 07:52 Glimepiride (Amaryl) 2 mg DAILY@0800 PO 02/17/21 08:00 02/24/21 08:34 Home Med (Home Med List Complete!) ASDIRECTED XX 02/16/21 16:15 02/16/21 16:17 DC Hydroxyzine HCl (Atarax) 25 mg Q4H PO 02/16/21 17:00 02/17/21 10:00 DC 02/17/21 08:15 Hydroxyzine HCl (Atarax) 25 mg Q6HP PRN PO ANXIETY 02/20/21 09:50 02/22/21 22:26 Hydroxyzine HCl (Atarax) 25 mg QHS PO 02/21/21 21:00 02/23/21 09:13 DC 02/22/21 21:16 Hydroxyzine HCl (Atarax) 50 mg Q6HP PRN PO anxiety/agitation 02/16/21 15:15 02/20/21 09:51 DC 02/20/21 08:52 Lisinopril (Prinivil) 40 mg DAILY PO 02/17/21 09:00 02/18/21 12:40 DC 02/18/21 07:52 Lorazepam (Ativan) 1 mg STAT STAT PO 02/23/21 09:11 02/23/21 09:13 DC 02/23/21 09:34 Magnesium Hydroxide (Milk Of Magnesia) 30 ml DAILYPRN PRN PO CONSTIPATION 02/16/21 15:15 Mirtazapine (Remeron) 7.5 mg QHS PO 02/17/21 21:00 02/20/21 09:51 DC 02/19/21 22:01 Mirtazapine (Remeron) 15 mg QHS PO 02/20/21 21:00 02/23/21 09:13 DC 02/22/21 21:16 Nicotine (Nicoderm Cq 14mg) 1 patch DAILYPRN PRN TD NICOTINE WITHDRAWAL 02/17/21 09:45 Rosuvastatin Calcium (Crestor) 10 mg DAILY PO 02/17/21 09:00 02/24/21 08:34 Sertraline HCl (Zoloft) 50 mg DAILY PO 02/17/21 09:00 02/20/21 09:51 DC 02/20/21 07:56 Sertraline HCl (Zoloft) 75 mg QAM PO 02/21/21 09:00 02/24/21 08:34 Trazodone HCl (Desyrel) 50 mg QHSP PRN PO INSOMNIA 02/16/21 15:15 02/17/21 09:37 DC 02/16/21 20:43 Trazodone HCl (Desyrel) 100 mg QHS PO 02/23/21 21:00 02/23/21 21:36 Valacyclovir HCl (Valtrex) 500 mg BID PO 02/17/21 12:00 02/24/21 11:59 DC 02/24/21 08:34 Allergies Coded Allergies: No Known Allergies (Verified , 06/30/08) CRIS SANCHEZ NP Feb 24, 2021 14:57
[2021-02-24 18:53] VITALS: BP 150/76
[2021-02-24 19:50] VITALS: BP 150/76
[2021-02-24] MEDS: traZODone 100 MG TAB PO SCH (21:38)
[2021-02-25] MEDS: hydrOXYzine 25 MG TAB PO PRN ×2 (00:15→22:08)
[2021-02-25 05:09] LABS: HSV TYPE I IgG SPECIFIC <0.91 index (0.00-0.90)
[2021-02-25 07:25] VITALS: BP 154/81
[2021-02-25] MEDS: SERTRALINE HCL 25 MG TABLET PO SCH (07:48)
[2021-02-25] MEDS: GLIMEPIRIDE 2 MG TAB PO SCH (07:48)
[2021-02-25] MEDS: ROSUVASTATIN 10 MG TAB (CRESTOR) PO SCH (07:48)
--- NOTE | 2021-02-25 13:50 | IPNPDOC ---
Text Note Date of Service The patient was seen on 02/25/21. NOTE Subjective: Patient is a 70-year-old male with a PMHx of HTN, NIDDM2, DLP, who presented to the ER with depressed thoughts. Patient was admitted to the inpatient mental health unit under the care of psychiatry. Hospitalist service was consulted for medical screening evaluation on 02/16. Infectious disease was called on consultation on 02/17 for a penile sore been present for greater than 1 month. Hospital service was again contacted on 02/25 for an elevated blood pressure after he was taken off his blood pressure medications on 02/21 Patient was seen and examined in the exam room. Patient denies any lightheade dness, dizziness, chest pain, shortness breath, palpitations, nausea, vomiting, abdominal pain, diarrhea, or urinary discomfort. Patient reports that his penile lesion has resolved. Objective: Vitals (See below) General: Sitting up in exam chair, no acute distress, comfortable, AAOx3 HEENT: NC, AT CVS: +S1S2 Lungs: Fair air entry b/l, no appreciated wheezing, crackles, rhonchi Abdomen: Soft, ND, NT Extremities: - Edema, - Calf tenderness Assessment and plan: Depressed thoughts - Patient has been admitted to the inpatient mental health unit under the care of psychiatry - Currently being managed by psychiatry CKD3; s/p SHIRA - Patient's baseline Cr appears to be ~1.3 - Creatinine initially was 1.6-1.9 to; however has improved based on lab work from 02/21 - Will avoid nephrotoxic medications; Lisinopril / HCTZ were discontinued on af ter the last dose on 02/18 - Ideally, patient should resume Lisinopril if his renal function is permissive; will have outpatient follow up with PCP - Will repeat BMP now HTN - BP has been mildly elevated in the 150s - Will continue to hold Lisinopril / HCTZ (See above) - Will start Amlodipine 2.5 BID; will have hold parameters s/p Penile lesion - Patient has reported that this has resolved - HSV II IgG antibodies positive - Completed 7 days of Valacyclovir - ID was consulted; will have outpatient followup on discharge NIDDM2 - c/w Glipizide DLP - c/w Rosuvastatin Tobacco dependence - c/w Nicotine patch DVT prophylaxis - c/w early ambulation Disposition: - As per psych VS,Fishbone, I+O VS, Fishbone, I+O Vital Signs Date Time Temp Pulse Resp B/P (MAP) Pulse Ox O2 Delivery O2 Flow Rate FiO2 02/25/21 11:00 Room Air 02/25/21 07:25 98.8 69 14 154/81 (105) 94 FRANCY SHER MD Feb 25, 2021 13:50
[2021-02-25 14:30] LABS: CREATININE FOR GFR 1.49 MG/DL (0.70-1.30); GLOMERULAR FILTRATION RATE 49.6 (>42); POTASSIUM SERUM 4.2 MEQ/L (3.5-5.1)
[2021-02-25 18:37] VITALS: BP 126/82
[2021-02-25] MEDS: traZODone 100 MG TAB PO SCH (22:09)
[2021-02-25] MEDS: traZODone 50 MG TAB PO PRN (23:31)
[2021-02-26 06:00] VITALS: BP 157/81
[2021-02-26] MEDS: ROSUVASTATIN 10 MG TAB (CRESTOR) PO SCH (08:30)
[2021-02-26] MEDS: GLIMEPIRIDE 2 MG TAB PO SCH (08:30)
[2021-02-26] MEDS: SERTRALINE HCL 25 MG TABLET PO SCH (08:30)
[2021-02-26] MEDS: ACETAMINOPHEN TAB 650MG DOSE (2X325MG) PO PRN (08:32)
[2021-02-26 18:33] VITALS: BP 158/83
[2021-02-26] MEDS: traZODone 100 MG TAB PO SCH (21:49)
[2021-02-26] MEDS: hydrOXYzine 25 MG TAB PO PRN (23:04)
[2021-02-26] MEDS: traZODone 50 MG TAB PO PRN (23:04)
[2021-02-27 08:47] VITALS: BP 130/61
[2021-02-27] MEDS: ROSUVASTATIN 10 MG TAB (CRESTOR) PO SCH (08:47)
[2021-02-27] MEDS: GLIMEPIRIDE 2 MG TAB PO SCH (08:48)
[2021-02-27] MEDS: SERTRALINE HCL 25 MG TABLET PO SCH (08:48)
[2021-02-27] MEDS: ACETAMINOPHEN TAB 650MG DOSE (2X325MG) PO PRN (08:50)
[2021-02-27] MEDS ORDERED: SERT25TA85 PO (10:08)
[2021-02-27] MEDS ORDERED: TRAZ-257 PO (10:08)
[2021-02-27] MEDS ORDERED: NICO14PA TD (10:08)
[2021-02-27] MEDS ORDERED: HYDR-3363 PO (10:08)
[2021-02-27] MEDS ORDERED: TRAZ-252 PO (10:08)
[2021-02-27] MEDS ORDERED: AMLO25TA PO (10:08)
[2021-02-27] MEDS ORDERED: SERT-141 PO (10:08)
--- NOTE | 2021-02-27 16:19 | MHDSPDOC ---
[facility] Discharge Summary Discharge Summary DATE OF ADMISSION: Feb 16, 2021 at 15:14 DATE OF DISCHARGE: Feb 27, 2021 at 12:14 DISCHARGE DIAGNOSES: Major depressive disorder, recurrent episode, moderate Insomnia Nicotine use disorder REASON FOR ADMISSION: Patient is a 70 -year-old , Retired, Domiciled, , male, who reports increasing depression and anxiety over the course of a year. He also admits to insomnia for over a decade. States that when he goes to bed he goes roughly around 1030 but he cannot fall asleep, and he is up all night. States that if he does fall asleep he can sleep through the night but it is rare for him to get a full nights rest. He had a sleep study in [place] a year and a half ago and it was reported that he slept less than 10 minutes of the 7 hours that he was there. He goes to the [facility] clinic in [place] and has not been given any medications for insomnia. States that he has been seen by hypnotist but that did not work after an hour and a half. He tried group therapy that was unsuccessful. Also he tried acupuncture and had many treatments but that was not successful. States that back in [place] had worked a great but his reported that he was sleepwalking and he stopped taking it. Patient has had 1 psychiatric admission from 06/30/08 to 07/08/08 for depression. At that time, his was dying of cancer. He has since remarried. Patient appears very depressed and anxious in the interview, reports feeling overwhelmed and frustrated. States, "I am financially secure, I have a wonderful marriage and , we traveled all over the world, and I do not really have a reason to be depressed, but I do not get good rest." VITAL SIGNS: See below. CONSULTANTS INVOLVED: See Medical H + P by Hospitalist TREATMENT AND PROGRESS ON THE UNIT: Patient was admitted to the [facility] on a legal status was afforded the following treatment modalities: 1) Individual Therapy 2) Group Therapy 3) Medication Management 4) Milieu Therapy 5) Safe Environment HOSPITAL COURSE: Patient was admitted to [facility] on a legal status. Patient was started on Mirtazapine 7.5 mg and Zoloft 50 mg. Initially he had some improvement in sleep but that diminished, added hydroxyzine 50 mg and he reported some improvement but this was minimal and short-lived. Mirtazapine was increased to 15 mg. Patient reported no effectiveness of this increase in the next day he needed Ativan for his severe anxiety. Patient had refused Ambien on admission stated that he had problems with sleepwalking. Patient was agreeable to trying trazodone although initially he had reported that he felt he could not take this based on his memory, but he did not know why. Trazodone 100 mg helped him get some sleep but it was short-lived. Over the weekend he had trazodone with an additional 50 mg and he felt that this combination was the best He found medications beneficial and tolerated them well. Mood, anxiety, and intrusive thoughts improved with treatment. Pt attended groups daily during stay. Pts symptoms improved with treatment and he is requesting to be dischar ged today. on day of discharge pt. denied depression, anxiety, insomnia, SI/HI, hallucinations, delusions. Pt was discharged home [facility]. Pt felt safe for discharge. DISCHARGE ASSESSMENT: In today's interview, patient is alert and oriented, pt.s dress is appropriate. Hygiene and grooming is well-kempt. Smiles on approach and is pleasant and engaged in the interview. Denies depression and anxiety. Denies suicidal and homicidal ideation, planning or intent. Denies and is not observed with heraclio, psychotic symptoms of delusions, bizarre thinking, obsessions, paranoia, ruminations illogical thoughts, flight of ideas or having poor insight and judgement. Reinforced with patient need to abstain from alcohol and drugs. At discharge patient has normal mentation, declines further hospitalization on a voluntary status and meets criteria for discharge today. Discussed indications of medications, potential benefits and risks, alternatives (including no treatment) and questions were encouraged and answered. Patient encouraged to return to hospital if symptoms worsen or change and encouraged to call unit if he/she/they needs to speak to provider for questions regarding medications or care. MENTAL STATUS EXAMINATION ON DISCHARGE: Patient is a 70 -year-old , Retired, Domiciled, , male, who re ports increasing depression and anxiety over the course of a year. He also admits to insomnia for over a decade. Speech: Is fluid, conversant, normal rate, tone and volume Language skills are intact Thought processes including: linear and goal oriented Thought content: denies depression and anxiety. Denies suicidal/homicidal ideation, planning or intent. Abstract reasoning, and computation: fair Description of associations: denies, none observed Description of abnormal or psychotic thoughts: denies, none observed. Judgment: fair Insight: fair Orientation: alert and oriented to person, place, time and situation Recent and remote memory: intact Attention span and concentration: good Language: expansive Fund of knowledge: average Mood: Euthymic Mood Affect: reactive Suicide Risk Assessment: 1) Does the patient wish to be ? No 2) Since your admission, have you had any actual thought of killing yourself? No 3) Since your admission, have you been thinking about how you might do this? No 4) Since your admission, have you had these thoughts and had some intention of acting on them? No 5) Since your admission, have you started to work out or worked out the details of how to kill yourself? No 5A) Do you intent to carry out this plan? No and NA 6) Have you ever done anything, started anything, or prepared to do anything with any intent to ? No 6A) How long since your admission did you do any of these? NA MEDICATIONS ON DISCHARGE: See Medication Reconciliation PLAN/FOLLOWUP ARRANGEMENTS: He is being discharged home with [facility]. Pt felt safe for discharge. The amount of time spent in the coordination of care for this patient was approximately 25 minutes. ETOH/Disorder Med Rx ETOH/DRUG DISORDER RX: N/A Vital Signs/I&Os Vital Signs Date Time Temp Pulse Resp B/P (MAP) Pulse Ox O2 Delivery O2 Flow Rate FiO2 02/27/21 08:47 86 130/61 02/26/21 18:33 97.0 16 02/26/21 10:19 Room Air 02/26/21 06:00 99 Medications Scheduled Amlodipine Besylate (Amlodipine Besylate) 2.5 Mg Tablet, 2.5 MG PO BID for Blood Pressure, #14 Glimepiride (Glimepiride) 2 Mg Tablet, 2 MG PO DAILY, (Reported) Hydroxyzine HCl (Hydroxyzine HCl) 25 Mg Tablet, 25 MG PO Q6H for Anxiety, #28 Rosuvastatin Calcium (Rosuvastatin Calcium) 10 Mg Tablet, 10 MG PO DAILY, (Reported) Sertraline Hcl (Sertraline HCl) 50 Mg Tablet, 50 MG PO DAILY for Depression, #7 Sertraline Hcl (Sertraline HCl) 25 Mg Tablet, 25 MG PO DAILY for Depression, #7 Trazodone HCl (Trazodone HCl) 100 Mg Tablet, 100 MG PO QHS for Insomnia, #7 Scheduled PRN Nicotine (Nicotine Patch) 14 Mg Patch.td24, 1 PATCH TD DAILYPRN PRN for NICOTINE WITHDRAWAL, #7 Trazodone HCl (Trazodone HCl) 50 Mg Tablet, 50 MG PO QHSP PRN for INSOMNIA, #7 Allergies Coded Allergies: No Known Allergies (Verified , 06/30/08) CRIS SANCHEZ NP Feb 27, 2021 16:19
== END 2021-02-27 12:14 | disposition home or self-care (01) | DRG 885 ==
LOC: M ED 10:13 → M ED INP 15:14 → M PSY 17:00
PROVIDERS: ADMIT Student in an Organized Health Care Education/Training Program; ATTEND Student in an Organized Health Care Education/Training Program
DX: F33.1 Major depressive disorder, recurrent, moderate (principal); N17.9 Acute kidney failure, unspecified; R45.851 Suicidal ideations; A60.01 Herpesviral infection of penis; G47.00 Insomnia, unspecified; F17.210 Nicotine dependence, cigarettes, uncomplicated; I12.9 Hypertensive chronic kidney disease with stage 1 through stage 4 chronic kidney disease, or unspecified chronic kidney disease; E11.9 Type 2 diabetes mellitus without complications; E78.00 Pure hypercholesterolemia, unspecified; Z85.528 Personal history of other malignant neoplasm of kidney; Z79.84 Long term (current) use of oral hypoglycemic drugs; Z79.899 Other long term (current) drug therapy; Z20.822 Contact with and (suspected) exposure to COVID-19; N18.30 Chronic kidney disease, stage 3 unspecified; N48.9 Disorder of penis, unspecified

== ENCOUNTER 2022-11-26 14:09 | Emergency (ER) | payer MEDICARE, OTHER ==
[~2022-11-26] VITALS: Ht 172.7 cm; Wt 83.2 kg
[~2022-11-26 14:09] MED LIST changes: +AMLO25TA PO; +HYDR-3363 PO; +NICO14PA TD; +SERT-141 PO; +SERT25TA85 PO; +SILD100T; +TRAZ-252 PO; +TRAZ-257 PO
[2022-11-26 14:55] LABS: BASO % 0.4 % (0.0-1.0); EOS % 0.4 % (0.0-3.0); HEMOGLOBIN 15.1 g/dl (13.5-17.5); LYMPH # 1.2 10^3/uL (1.5-5.0); LYMPH % 11.5 % (24.0-44.0); MEAN CORPUSCULAR HEMOGLOBIN 31.1 pg (27.0-33.0); MEAN CORPUSCULAR HGB CONC 35.1 g/dl (32.0-36.5); MEAN CORPUSCULAR VOLUME 88.5 fl (80.0-96.0); MONO # 0.8 10^3/uL (0.0-0.8); MONO % 7.7 % (2.0-8.0); NEUTROPHILS # 8.3 10^3/uL (1.5-8.5); NEUTROPHILS % 79.6 % (36.0-66.0); PLATELET COUNT, AUTOMATED 211 10^3/uL (150-450); RED BLOOD COUNT 4.86 10^6/uL (4.30-6.10); WHITE BLOOD COUNT 10.4 10^3/uL (4.0-10.0)
[2022-11-26 15:22] LABS: ALBUMIN 4.1 G/DL (3.2-5.2); ALKALINE PHOSPHATASE 90 U/L (46-116); ALT/SGPT 70 U/L (7.0-40); AST/SGOT 28 U/L (<34); BILIRUBIN,DIRECT 0.2 MG/DL (<0.4); BILIRUBIN,TOTAL 0.5 MG/DL (0.3-1.2); CK-MB VALUE MASS < 1.0 NG/ML (<3.6); TOTAL PROTEIN 7.4 G/DL (5.7-8.2)
[2022-11-26 15:25] LABS: THYROID STIMULATING HORMONE 2.917 uIU/ML (0.55-4.78)
[2022-11-26 15:37] LABS: RSV AMPLIFICATION NEGATIVE (NEGATIVE)
[2022-11-26 15:39] LABS: BLOOD UREA NITROGEN 39 MG/DL (9-23); CALCIUM LEVEL 9.1 MG/DL (8.3-10.6); CARBON DIOXIDE LEVEL 20 MMOL/L (20-31); CHLORIDE LEVEL 104 MMOL/L (98-107); CREATININE FOR GFR 1.55 MG/DL (0.70-1.30); GLOMERULAR FILTRATION RATE 47.2 (>42); GLUCOSE, FASTING 141 MG/DL (74-106); POTASSIUM SERUM 3.6 MMOL/L (3.5-5.1); SODIUM LEVEL 135 MMOL/L (136-145)
[2022-11-26 15:40] LABS: CPK CREATINE PHOSPHOKINASE 112 U/L (46-171); MB/CK RELATIVE INDEX 0.89 (< OR =4)
[2022-11-26] MEDS: NS 1,000 ML IV ONE ×2 (16:25→17:12)
[2022-11-26 18:06] LABS: CK-MB VALUE MASS < 1.0 NG/ML (<3.6)
[2022-11-26 18:09] VITALS: O2SAT 97
[2022-11-26 18:12] LABS: CPK CREATINE PHOSPHOKINASE 102 U/L (46-171); MB/CK RELATIVE INDEX 0.98 (< OR =4)
[2022-11-26] MEDS ORDERED: ACETAMINOPHEN TAB 650MG DOSE (2X325MG) PO ONE (18:30)
[2022-11-26 18:40] LABS: ETHYL ALCOHOL (ETHANOL) < 0.003 % (0.000-0.010)
[2022-11-26 18:42] LABS: ACETAMINOPHEN LEVEL < 2.0 UG/ML (10.0-20.0); SALICYLATE LEVEL < 3.0 MG/DL (<30)
[2022-11-26 19:06] LABS: AMPHETAMINES LEVEL URINE NEGATIVE (NEGATIVE); BARBITURATES URINE NEGATIVE (NEGATIVE); PHENCYCLIDINE URINE NEGATIVE (NEGATIVE)
[2022-11-26 19:07] LABS: BENZODIAZEPINES URINE NEGATIVE (NEGATIVE); CANNABINOIDS URINE NEGATIVE (NEGATIVE); COCAINE METABOLITE URINE NEGATIVE (NEGATIVE); METHADONE URINE NEGATIVE (NEGATIVE); OPIATES URINE NEGATIVE (NEGATIVE)
[2022-11-26 20:34] VITALS: BP 120/76; TEMP 98.6; O2SAT 97
== END 2022-11-26 20:55 | disposition home or self-care (01) ==
LOC: M ED 14:09 → EDBD 14:09 → M ED 20:55
DX: R53.1 Weakness (principal); R63.4 Abnormal weight loss; R61 Generalized hyperhidrosis; E11.9 Type 2 diabetes mellitus without complications; I10 Essential (primary) hypertension; F32.9 Major depressive disorder, single episode, unspecified; F17.200 Nicotine dependence, unspecified, uncomplicated; Z79.84 Long term (current) use of oral hypoglycemic drugs; Z79.899 Other long term (current) drug therapy

== ENCOUNTER → 2024-01-13 | Outpatient (REF) | payer MEDICARE, OTHER ==
[~2024-01-13] MED LIST changes: -ROSU10TA6 PO; +ROSU10TA61 PO; +ROSU5TAB49 PO; -ROSU5TAB5 PO
[2024-01-13 16:17] LABS: APPEARANCE, URINE CLEAR (CLEAR); BACTERIA, URINE AUTO NEGATIVE (NEGATIVE); BILIRUBIN, URINE AUTO NEGATIVE (NEGATIVE); BLOOD, URINE BLOOD NEGATIVE (NEGATIVE); COLOR, URINE YELLOW (YELLOW); GLUCOSE, URINE (UA) AUTO 3+ mg/dL (NEGATIVE); KETONE, URINE AUTO NEGATIVE (NEGATIVE); LEUKOCYTE ESTERASE, URINE AUTO NEGATIVE (NEGATIVE); MUCUS, URINE SMALL (NEGATIVE); NITRITE, URINE AUTO NEGATIVE (NEGATIVE); PROTEIN, URINE AUTO NEGATIVE (NEGATIVE); RBC, URINE AUTO 0 /HPF (0-3); SPECIFIC GRAVITY URINE AUTO 1.018 (1.002-1.035); SQUAMOUS EPITHELIAL CELL UR AU 0 /HPF (0-6); UROBILINOGEN, URINE AUTO 0.2 mg/dL (0.0-2.0); WBC, URINE AUTO 1 /HPF (0-3)
== END ==
LOC: M SMT 15:22
PROVIDERS: ATTEND Urology
DX: N40.0 Benign prostatic hyperplasia without lower urinary tract symptoms (principal)
CPT/HCPCS: 81001; 88108; G0463